=== PATIENT | female | born 1965 | race Two or more races ===

== ENCOUNTER 2024-12-26 20:50 | Inpatient (IN) | payer MEDICAID, OTHER ==
[~2024-12-26] VITALS: Ht 134.6 cm; Wt 96.7 kg
[2024-12-26 21:26] LABS: Hematocrit 42.1 % (36.0-46.0); Hemoglobin 14.1 g/dL (12.2-16.2); Mean Corpuscular Hemoglobin 29.4 pg (28.0-32.0); Mean Corpuscular Volume 87.7 fL (80.0-100.0); Nucleated Red Blood Cells % 0.0 %
[2024-12-26 21:44] LABS: Calcium 9.0 mg/dL (8.7-10.4); Chloride 99 mmol/L (98-107)
[2024-12-26 21:45] LABS: Albumin 4.0 g/dL (3.2-4.8); Anion Gap 13 (5-15); BUN/Creatinine Ratio 19.3 (10.0-20.0); Bilirubin, Total 0.6 mg/dL (0.2-1.0); Blood Urea Nitrogen 17 mg/dL (9-23); Lipase 33 U/L (12-53); Potassium 4.3 mmol/L (3.5-5.1); Total Protein 6.8 g/dL (5.7-8.2)
[2024-12-26 21:46] LABS: Alanine Aminotransferase 45 U/L (7-40); Alkaline Phosphatase 205 U/L (46-116); Carbon Dioxide 18 mmol/L (20-31); Sodium 130 mmol/L (136-145)
[2024-12-26 21:48] LABS: Glucose 438 mg/dL (74-106)
--- NOTE | 2024-12-26 22:12 | ED.PDOC ---
History of Present Illness HPI Comments This patient is a severely morbidly obese 60 y/o F is BIBA for c/c generalized weakness, diffuse abdominal pain and hyperglycemia that began this morning has continued throughout the day. Denies any nausea, vomiting, dehydration, urinary symptoms, fever, chills, or further associated symptoms. Blood glucose on scene in the high 400's range. Patient was mildly febrile at arrival. Patient states she has a history of poorly controlled diabetes and hypertension. Chief Complaint: Hyperglycemia Time Seen by MD: 20:50 Reviewed Notes: Nurses Notes, Centrifugal Screen Tender Notes, Medications, Allergies Allergies: Coded Allergies: No Known Drug Allergy (Verified Allergy, Unknown, 12/26/24) Information Source: Patient, Emergency Med Personnel Mode of Arrival: EMS Severity: Moderate Timing: Days Duration: Since onset Prehospital treatment: 12 Lead EKG, Accucheck, Card Lacer, IVF, Other (Zofran ) Past Medical History PAST MEDICAL HISTORY: DM, HTN, Thyroid Surgical History: Denies all surgeries TENT WORKER History: Denies all TENT WORKER Hx Family History Family History: Unknown Social History Smoker: Non-Smoker Alcohol: Denies ETOH Use Drugs: Denies Drug Use Lives In: Home Constitutional: reports: fatigue, fever, malaise, weakness; denies: chills, diaphoresis, sweats, others EENTM: denies: blurred vision, double vision, ear bleeding, ear discharge, ear drainage, ear pain, ear ringing, eye pain, eye redness, hearing loss, mouth pain, mouth swelling, nasal discharge, nose bleeding, nose congestion, nose pain, photophobia, tearing, throat pain, throat swelling, voice changes, others Respiratory: denies: cough, hemoptysis, orthopnea, SOB at rest, shortness of breath, SOB with excertion, stridor, wheezing, others Cardiovascular: denies: chest pain, dizzy spells, diaphoresis, Dyspnea on exertion, edema, irregular heart beat, left arm pain, lightheadedness, palpitations, PND, syncope, others Gastrointestinal: reports: abdominal pain; denies: abdomen distended, blood streaked bowels, constipated, diarrhea, dysphagia, difficulty swallowing, hematemesis, melena, nausea, poor appetite, poor fluid intake, rectal bleeding, rectal pain, vomiting, others Genitourinary: denies: abnormal vagina bleeding, burning, dyspareunia, dysuria, flank pain, frequency, hematuria, incontinence, pain, , vagina discharge, urgency, others Neurological: denies: dizziness, fainting, headache, left sided numbness, left sided weakness, numbness, paresthesia, pre-existing deficit, right sided numbness, right sided weakness, seizure, speech problems, tingling, tremors, weakness, others Musculoskeletal: denies: back pain, gout, joint pain, joint swelling, muscle pain, muscle stiffness, neck pain, others Integumetry: denies: bruises, change in color, change in hair/nails, dryness, laceration, lesions, lumps, rash, wounds, others Allergic/Immunocompromised: denies: Difficulty Healing, Frequent Infections, Hives, Itching, others Hematologic/Lymphatic: denies: anemia, blood clots, easy bleeding, easy bruising, swollen glands, others Endocrine: denies: excessive hunger, excessive sweating, excessive thirst, excessive urination, flushing, intolerance to cold, intolerance to heat, unexplained weight gain, unexplained weight loss, others Psychiatric: denies: anxiety, bipolar disorder, depression, hopeless, panic disorder, schizophrenia, sleepless, suicidal, others All Other Systems: Reviewed and Negative (Comprehensive systems review obtained and negative except for what is stated in the HPI.) Physical Exam General Appearance: Moderate Distress ([id number] distress due to chief complaint concerns. Patient appears to be in poor overall health.), Normal HEENT: Normal ENT Inspection, Pharynx Normal, TMs Normal Neck: Full Range of Motion, Non-Tender, Normal, Normal Inspection Respiratory: Chest Non-Tender, Lungs Clear, No Accessory Muscle Use, No Respiratory Distress, Normal Breath Sounds Cardiovascular: No Edema, No JVD, No Murmur, No Gallop, Normal Peripheral Pulses, Regular Rate/Rhythm Breast Exam: Deferred Gastrointestinal: Other (Nonspecific diffuse periumbilical tenderness to palpation throughout. Difficult to assess due to body habitus. No signs of trauma.) Genitalia: Deferred Pelvic: Deferred Rectal: Deferred Extremities: No calf tenderness, Normal capillary refill, Normal inspection, Normal range of motion, Non-tender, No pedal edema Neurologic: Alert, No Motor Deficits, Normal Affect, Normal Mood, No Sensory Deficits Cerebellar Function: Normal Reflexes: Normal Skin: Dry, Normal Color, Warm Lymphatic: No Adenopathy Was a procedure done? Was a procedure done?: No Differential Dx Considerations may include: viral syndrome, electrolyte imbalance, dehydration, hyperglycemia, DKA, among others X-Ray, Labs, Meds, VS Vital Signs Date Time Temp Pulse Resp B/P (MAP) Pulse Ox O2 Delivery O2 Flow Rate FiO2 12/26/24 22:00 98.9 91 20 121/77 (92) 96 98.9 12/26/24 21:56 100.4 91 28 148/73 (98) 94 100.4 12/26/24 20:55 91 Lab Test 12/26/24 22:52 12/26/24 22:05 12/26/24 21:15 Range/Units Urine Color Dark yellow Yellow Urine Clarity Turbid H Clear Urine pH 6.0 5.0-9.0 Urine Specific [place] 1.024 1.001-1.035 Urine Protein 2+ H Negative Urine Ketones 2+ H Negative Urine Blood 2+ H Negative /uL Urine Nitrite Negative Negative Urine Bilirubin Negative Negative Urine Urobilinogen Normal Negative mg/dL Urine Leukocyte Esterase 2+ Negative /uL Urine RBC 5 0 - 4 /hpf Urine WBC Clumps Present None Seen /hpf Urine Microscopic WBC 93 H 0-5 /HPF Urine Squamous Epithelial Cells Few <5 /hpf Urine Bacteria Many H None Seen /hpf Urine Glucose 4+ H Normal mg/dL Troponin I High Sensitivity < 3 L < 3 L </=34 ng/L White Blood Count 16.5 H 4.4-10.8 10^3/uL Red Blood Count 4.80 4.0-5.20 10^6/uL Hemoglobin 14.1 12.2-16.2 g/dL Hematocrit 42.1 36.0-46.0 % Mean Corpuscular Volume 87.7 80.0-100.0 fL Mean Corpuscular Hemoglobin 29.4 28.0-32.0 pg Mean Corpuscular Hemoglobin Concent 33.6 32.0-36.0 g/dL Red Cell Distribution Width 13.1 11.8-14.3 % Platelet Count 243 140-450 10^3/uL Mean Platelet Volume 9.8 6.9-10.8 fL Neutrophils (%) (Auto) 79.2 37.0-80.0 % Lymphocytes (%) (Auto) 9.6 L 10.0-50.0 % Monocytes (%) (Auto) 10.7 0.0-12.0 % Eosinophils (%) (Auto) 0.1 0.0-7.0 % Basophils (%) (Auto) 0.4 0.0-2.0 % Neutrophils # (Auto) 13.1 H 1.6-8.6 10 ^3/uL Lymphocytes # (Auto) 1.6 0.4-5.4 10 ^3/uL Monocytes # (Auto) 1.8 H 0-1.3 10 ^3/uL Eosinophils # (Auto) 0 0-0.8 10 ^3/uL Basophils # (Auto) 0.1 0-0.2 10 ^3/uL Nucleated Red Blood Cells 0.0 % Sodium Level 130 L 136-145 mmol/L Potassium Level 4.3 3.5-5.1 mmol/L Chloride Level 99 98-107 mmol/L Carbon Dioxide Level 18 L 20-31 mmol/L Anion Gap 13 5-15 Blood Urea Nitrogen 17 9-23 mg/dL Creatinine 0.88 0.550-1.02 mg/dL Glomerular Filtration Rate Calc 75 >90 mL/min BUN/Creatinine Ratio 19.3 10.0-20.0 Serum Glucose 438 *H 74-106 mg/dL Lactic Acid Level 1.2 0.4-2.0 mmol/L Calcium Level 9.0 8.7-10.4 mg/dL Total Bilirubin 0.6 0.2-1.0 mg/dL Aspartate Amino Transferase (AST) 56 H 13-40 U/L Alanine Aminotransferase (ALT) 45 H 7-40 U/L Alkaline Phosphatase 205 H 46-116 U/L Total Protein 6.8 5.7-8.2 g/dL Albumin 4.0 3.2-4.8 g/dL Lipase 33 12-53 U/L Current Medications Medications (Trade) Dose Ordered Sig/Greg Route Start Time Stop Time Status Last Admin Sodium Chloride 1,000 ml @ 1,000 mls/hr Q1H ONCE IV 12/26/24 21:00 12/26/24 21:59 DC 12/26/24 22:20 Insulin Human Regular (InsuLIN R) 15 units ONCE ONCE IV 12/26/24 21:00 12/26/24 21:01 DC 12/26/24 22:21 Ondansetron HCl (Zofran) 4 mg ONCE ONCE IV 12/26/24 21:00 12/26/24 21:01 DC 12/26/24 22:20 X-Ray, Labs, Meds, VS Comment All studies performed the ED were evaluated by me personally. ABG was pending at time of this note. Serum laboratories revealed a leukocytosis, significant hyperglycemia, hyponatremia and transaminitis with elevated alk-phos. Patient's urine returned a significant urinary tract infection. Patient needs to be admitted for stabilization of her blood sugar concerns as well as antibiotics to address her urinary tract infection that may be responsible for her elevated fever concerns as well. Time of 1ST Reevaluation: 23:18 Reevaluation 1ST: Improved Consultation: PCP Patient Education/Counseling: Diagnosis, Treatment, Need For Follow Up Family Education/Counseling: Diagnosis, Treatment, No Family Present SEPSIS Sepsis Screen Date sepsis recognized/suspect: Dec 26, 2024 Time Sepsis recognized/suspect: 2053 Recent Procedure: No On Antibiotic Therapy: No Respiratory Rate >20: No Heart Rate >90: No Temp<36 C (96.8 F) or >38.3 C: No SBP <90 or MAP <65 mmHG: No New Acute Mental Status Change: No Is the patient on CPAP, BIPAP,: No Physician Orders Troponin-I Hs (12/26/24 23:58) Electrocardigram (12/26/24 20:58) Heplock Iv (12/26/24 ) Ceftriaxone 1gm/50ml D5w (Rocephin) (12/26/24 23:15) Vital Signs Date Time Temp Pulse Resp B/P (MAP) Pulse Ox O2 Delivery O2 Flow Rate FiO2 12/26/24 22:00 98.9 91 20 121/77 (92) 96 98.9 12/26/24 21:56 100.4 91 28 148/73 (98) 94 100.4 12/26/24 20:55 91 Laboratory Tests Test 12/26/24 21:15 Lactic Acid Level 1.2 mmol/L (0.4-2.0) White Blood Count 16.5 10^3/uL (4.4-10.8) H Medications Medications Dose Ordered Sig/Greg Route Start Time Stop Time Status Last Admin Dose Admin Insulin Human Regular 15 units ONCE ONCE IV 12/26/24 21:00 12/26/24 21:01 DC 12/26/24 22:21 Ondansetron HCl 4 mg ONCE ONCE IV 12/26/24 21:00 12/26/24 21:01 DC 12/26/24 22:20 Sodium Chloride 1,000 ml @ 1,000 mls/hr Q1H ONCE IV 12/26/24 21:00 12/26/24 21:59 DC 12/26/24 22:20 Departure 1 Departure Time of Disposition: 23:18 Impression: Primary Impression: Hyperglycemia due to diabetes mellitus Additional Impressions: Leukocytosis Hyponatremia Transaminitis Urinary tract infection Disposition: ADMITTED INPATIENT Condition: Fair Discharged With: Self Critical Care Note Critical Care Time?: No Stability Stability form required: No Heart Score Heart Score: Heart Score Response (Comments) Value History N/A 0 EKG N/A 0 Age N/A 0 Risk Factors N/A 0 Troponin N/A 0 Total 0 I personally scribed for NIMCO HESS MD ([email or web address]) on 12/26/24 at 22:12. Electronically submitted by Davis Sow [email or web address]). NIMCO HESS MD Dec 26, 2024 22:12 BLANCA GUAMAN Dec 26, 2024 23:19
[2024-12-26] MEDS: ONDANSETRON HCL 4 MG/2 ML VIAL IV ONE (22:20)
[2024-12-26] MEDS: SODIUM CHLORIDE 0.9% 1,000 ML IV ONE (22:20)
[2024-12-26] MEDS: InsuLIN REG 1unit/0.01ml Soln (100units/ml) IV ONE (22:21)
[2024-12-26 23:05] LABS: Urine Protein, UAD 2+ (Negative); Urine WBC Clumps PRESENT /hpf (None Seen)
[2024-12-26 23:31] LABS: Base Excess -5.9 mmol/L (-2.0-3.0)
[2024-12-27] VITALS (8 sets, daily range): BP systolic 111–132; BP diastolic 57–78; PULSE 67–90; RESP 16–20; TEMP 97.9–99.2; O2SAT 92–97
[2024-12-27] MEDS: ACETAMINOPHEN 325 MG TAB PO ONE (00:01)
[2024-12-27] MEDS: cefTRIAXone 1GM/50ML D5W 50 ML IV ONE ×2 (00:02→03:26)
[2024-12-27] MEDS ORDERED: DEXTROSE (50%) 50ML SYRG IV PRN (02:45)
[2024-12-27] MEDS ORDERED: ONDANSETRON HCL 4 MG/2 ML VIAL IV PRN (02:45)
--- NOTE | 2024-12-27 03:44 | DVHHPRES ---
History of Present Illness Resident Creating Document: MARI PENNY RESIDENT History of Present Illness This is a 60-year-old morbidly obese female with past medical history of type 2 diabetes mellitus (T2DM) on metformin only, hypertension, and hypothyroidism, presenting from home with generalized weakness, diffuse abdominal pain (left > right), and hyperglycemia. Symptoms began approximately 4 days ago and include burning with urination, chills, nausea, no appetite, and shortness of breath without cough. She denies vomiting or chest pain. She had a bowel movement yesterday and reports bilateral leg swelling. She reports no insulin therapy at home, and her glucose has been elevated throughout the day. On arrival, she was mildly febrile (T 100.4F), tachypneic (RR 28), and hypertensive (BP 148/73 mmHg). Urinalysis is positive for turbidity, leukocyte esterase (2+), ketones (2+), glucose (4+), RBCs, WBCs (93/hpf), and bacteria. CBC revealed WBC 16.5K with neutrophilic predominance (13.1K). CMP showed hyponatremia (Na 130),Corrected Sodium 135.4 mmol/L, low CO (18), glucose 438 mg/dL, and albumin 2.4 g/dL. ABG revealed pH 7.393, pCO 29.4, HCO 17.5, Sandra? 68.1, and Osat 93.4%, consistent with metabolic acidosis with appropriate respiratory compensation and mild hypoxemia. Lactic acid was normal (1.2). This clinical picture is concerning for Hyperglycemic State , complicated urinary tract infection, and volume depletion with mild hypoxia and electrolyte disturbances. Due to the risk of decompensation, she is being admitted to the telemetry unit for continuous monitoring, IV fluids, insulin therapy, antibiotic treatment for UTI, and further workup of her metabolic status. Past Medical History Type 2 Diabetes Mellitus Hypertension Hypothyroidism Past Surgical History section Hysterectomy Family History Father with type 2 diabetes mellitus Smoke: No Drugs: None Lives: with Family Domestic Violence: Neg Past Social History Denies alcohol, tobacco, or drug use Review of Systems Review of Systems General: Positive for fatigue, malaise, chills. HEENT: No visual changes or headache. CV: Denies chest pain or palpitations. Resp: Mild SOB, no cough or wheezing. GI: Diffuse abdominal pain, nausea, no vomiting, last BM yesterday. : Burning with urination, suprapubic pain. Neuro: No focal deficits. Skin: Bilateral leg swelling, no rashes. Psych: Alert, cooperative, anxious due to symptoms. Allergies: Coded Allergies: No Known Drug Allergy (Verified Allergy, Unknown, 12/26/24) Medications Current Medications Medications Dose Ordered Sig/Greg Route Start Time Stop Time Status Last Admin Dose Admin Acetaminophen 650 mg Q6HP PRN PO 12/27/24 02:45 Enoxaparin Sodium 40 mg DAILY SC 12/27/24 10:00 Insulin Glargine 20 units HS SC 12/27/24 22:00 Diagnostic Test (Pha) 1 strip Q6HR 12/27/24 06:00 Insulin Human Regular Q6HR SC 12/27/24 06:00 Dextrose 50 ml UD PRN IV 12/27/24 02:45 Ondansetron HCl 4 mg ONCE PRN IV 12/27/24 02:45 Exam Vital Signs Vital Signs Date Time Temp Pulse Resp B/P (MAP) Pulse Ox O2 Delivery O2 Flow Rate FiO2 12/26/24 22:00 98.9 91 20 121/77 (92) 96 98.9 Exam General: Moderate distress, alert, oriented HEENT: Normocephalic, no lymphadenopathy Cardiac: RRR, no murmurs/gallops Lungs: Clear to auscultation Abdomen: Soft, diffusely tender (left > right), no rebound/guarding Extremities: Bilateral 1+ edema Neuro: Grossly intact, no focal deficits Skin: Warm, dry Labs/Xrays Labs Test 12/26/24 23:25 12/26/24 22:52 12/26/24 22:05 12/26/24 21:15 Range/Units Blood Gas Specimen Type Arterial Blood Gas Sample Site Peripheral line Blood Gas Patient Temperature 37.0 Arterial Blood Date Drawn [id number] Arterial Blood pH 7.393 7.350-7.450 Arterial Blood Partial Pressure CO2 29.4 L 32.0-45.0 mmHg Arterial Blood Partial Pressure O2 68.1 L 83.0-108.0 mmHg Arterial Blood HCO3 17.5 L 21.0-28.0 mmol/L Arterial Blood Oxygen Saturation 93.4 L 94.0-98.0 % Arterial Blood Base Excess -5.9 L -2.0-3.0 mmol/L Arterial Blood Oxyhemoglobin 91.5 L 94.0-98.0 % Arterial Blood Carboxyhemoglobin 1.5 0.5-1.5 % Arterial Blood Methemoglobin 0.5 0.0-1.5 % Fuad Test Yes Blood Gas Total Hemoglobin 14.80 12.0-16.0 g/dL Blood Gas Liter Flow 0.00 Blood Gas Modality Room air FiO2 % 21.0 Urine Color Dark yellow Yellow Urine Clarity Turbid H Clear Urine pH 6.0 5.0-9.0 Urine Specific [place] 1.024 1.001-1.035 Urine Protein 2+ H Negative Urine Ketones 2+ H Negative Urine Blood 2+ H Negative /uL Urine Nitrite Negative Negative Urine Bilirubin Negative Negative Urine Urobilinogen Normal Negative mg/dL Urine Leukocyte Esterase 2+ Negative /uL Urine RBC 5 0 - 4 /hpf Urine WBC Clumps Present None Seen /hpf Urine Microscopic WBC 93 H 0-5 /HPF Urine Squamous Epithelial Cells Few <5 /hpf Urine Bacteria Many H None Seen /hpf Urine Glucose 4+ H Normal mg/dL Troponin I High Sensitivity < 3 L </=34 ng/L White Blood Count 16.5 H 4.4-10.8 10^3/uL Red Blood Count 4.80 4.0-5.20 10^6/uL Hemoglobin 14.1 12.2-16.2 g/dL Hematocrit 42.1 36.0-46.0 % Mean Corpuscular Volume 87.7 80.0-100.0 fL Mean Corpuscular Hemoglobin 29.4 28.0-32.0 pg Mean Corpuscular Hemoglobin Concent 33.6 32.0-36.0 g/dL Red Cell Distribution Width 13.1 11.8-14.3 % Platelet Count 243 140-450 10^3/uL Mean Platelet Volume 9.8 6.9-10.8 fL Neutrophils (%) (Auto) 79.2 37.0-80.0 % Lymphocytes (%) (Auto) 9.6 L 10.0-50.0 % Monocytes (%) (Auto) 10.7 0.0-12.0 % Eosinophils (%) (Auto) 0.1 0.0-7.0 % Basophils (%) (Auto) 0.4 0.0-2.0 % Neutrophils # (Auto) 13.1 H 1.6-8.6 10 ^3/uL Lymphocytes # (Auto) 1.6 0.4-5.4 10 ^3/uL Monocytes # (Auto) 1.8 H 0-1.3 10 ^3/uL Eosinophils # (Auto) 0 0-0.8 10 ^3/uL Basophils # (Auto) 0.1 0-0.2 10 ^3/uL Nucleated Red Blood Cells 0.0 % Sodium Level 130 L 136-145 mmol/L Potassium Level 4.3 3.5-5.1 mmol/L Chloride Level 99 98-107 mmol/L Carbon Dioxide Level 18 L 20-31 mmol/L Anion Gap 13 5-15 Blood Urea Nitrogen 17 9-23 mg/dL Creatinine 0.88 0.550-1.02 mg/dL Glomerular Filtration Rate Calc 75 >90 mL/min BUN/Creatinine Ratio 19.3 10.0-20.0 Serum Glucose 438 *H 74-106 mg/dL Lactic Acid Level 1.2 0.4-2.0 mmol/L Calcium Level 9.0 8.7-10.4 mg/dL Total Bilirubin 0.6 0.2-1.0 mg/dL Aspartate Amino Transferase (AST) 56 H 13-40 U/L Alanine Aminotransferase (ALT) 45 H 7-40 U/L Alkaline Phosphatase 205 H 46-116 U/L Total Protein 6.8 5.7-8.2 g/dL Albumin 4.0 3.2-4.8 g/dL Lipase 33 12-53 U/L SEPSIS Sepsis Screen Date sepsis recognized/suspect: Dec 26, 2024 Time Sepsis recognized/suspect: 2053 Recent Procedure: No On Antibiotic Therapy: No Respiratory Rate >20: No Heart Rate >90: No Temp<36 C (96.8 F) or >38.3 C: No SBP <90 or MAP <65 mmHG: No New Acute Mental Status Change: No Is the patient on CPAP, BIPAP,: No Physician Orders Electrocardigram (12/26/24 20:58) Heplock Iv (12/26/24 ) Abg W/ Co-Ox (12/26/24 23:16) Admit (12/27/24 02:37) Code Status (12/27/24 02:37) Vital Signs .PER UNIT PROTOCOL (12/27/24 02:37) Review Orders With Adm. (12/27/24 02:37) Encourage Activity As Tolerate (12/27/24 02:37) Acetaminophen Tablet (Tylenol Tablet) (12/27/24 02:45) Notify Md Of Changes From Base (12/27/24 02:37) Advance Directive (12/27/24 02:37) Chest Two Views Routine (12/28/24 04:00) Complete Blood Count (12/27/24 02:37) Urine Bacterial Culture (12/27/24 02:37) Patient Condition (12/27/24 02:37) Allergies (12/27/24 02:37) Drug Screen (12/27/24 02:37) Hemoglobin A1c (12/27/24 02:37) Enoxaparin Sodium (Lovenox) (12/27/24 10:00) Stat Ekg For Chest Pain (12/27/24 02:37) Assistant City Attorney For 24 Hours (12/27/24 02:37) Electrocardigram (12/27/24 02:37) Npo (Nothing By Mouth) Diet (12/27/24 Breakfast) Insulin Lantus (Glargine) (Lantus) (12/27/24 22:00) Glucose Blood (Accu-Chek Comfort Curve T (12/27/24 06:00) Insulin R (Human) (Insulin R) (12/27/24 06:00) Dextrose 50% Syringe (12/27/24 02:45) Comprehensive Metabolic Panel (12/27/24 02:37) Magnesium (12/27/24 02:37) Phosphorus (12/27/24 02:37) Calcium (12/27/24 02:37) Blood Culture (12/27/24 02:37) Osmolality, Serum (12/27/24 02:37) PTPTT (12/27/24 02:37) Prothrombin Time W/ Inr (12/27/24 02:37) Document Fluid Input And Outpu (12/27/24 02:37) Ceftriaxone 1gm/50ml D5w (Rocephin) (12/27/24 03:15) Abdomen Complete Sonogram (12/27/24 02:37) B-Type Natriuretic Peptide (12/27/24 02:37) Rapid Influenza A&B (12/27/24 02:37) Covid19 Antigen Valerie (12/27/24 ) Thyroid Stimulating Hormone (12/27/24 02:37) Free T4 (Free Thyroxine) (12/27/24 02:37) Bilat Lower Dvt (12/27/24 02:37) Ondansetron Hcl (Zofran) (12/27/24 02:45) D-Dimer (12/27/24 02:37) Kub Abdomen Single View (12/27/24 02:37) Vital Signs Date Time Temp Pulse Resp B/P (MAP) Pulse Ox O2 Delivery O2 Flow Rate FiO2 12/26/24 22:00 98.9 91 20 121/77 (92) 96 98.9 12/26/24 21:56 100.4 91 28 148/73 (98) 94 100.4 12/26/24 20:55 91 Laboratory Tests Test 12/26/24 21:15 Lactic Acid Level 1.2 mmol/L (0.4-2.0) White Blood Count 16.5 10^3/uL (4.4-10.8) H Medications Medications Dose Ordered Sig/Greg Route Start Time Stop Time Status Last Admin Dose Admin Acetaminophen 650 mg ONCE ONCE PO 12/27/24 00:00 12/27/24 00:01 DC 12/27/24 00:01 650 MG Ceftriaxone Sodium 50 ml @ 100 mls/hr ONCE ONCE IV 12/26/24 23:15 12/26/24 23:44 DC 12/27/24 00:02 100 MLS/HR Insulin Human Regular 15 units ONCE ONCE IV 12/26/24 21:00 12/26/24 21:01 DC 12/26/24 22:21 15 UNITS Ondansetron HCl 4 mg ONCE ONCE IV 12/26/24 21:00 12/26/24 21:01 DC 12/26/24 22:20 4 MG Sodium Chloride 1,000 ml @ 1,000 mls/hr Q1H ONCE IV 12/26/24 21:00 12/26/24 21:59 DC 12/26/24 22:20 1,000 MLS/HR Assessment/Plan Assessment/Plan Hyperglycemic State (HHS) * Due to poorly controlled diabetes, absence of insulin, glucose 438 mg/dL, ketonuria, dehydration, and altered mental status risk. Diffuse Abdominal Pain with Elevated LFTs Elevated Liver-Associated Enzymes Transaminitis and Cholestasis Pattern * AST 56 (?), ALT 45 (?), ALP 205 (?), suggestive of mixed hepatocellular- cholestatic injury. * Etiologies being evaluated: fatty liver (NAFLD), cholelithiasis, darling cystitis, biliary obstruction, medication-related hepatotoxicity, or infection. * Lipase normal, ruling out pancreatitis. Complicated Urinary Tract Infection CC * Based on dysuria, suprapubic pain, positive UA (bacteria, WBCs, leuk esterase), fever, and systemic response. Mild Anion Gap Metabolic Acidosis with Respiratory Compensation * HCO?? 17.5, AG 13, PCO? 29.4, consistent ABG compensation. Electrolyte Imbalance Hyponatremia (corrected Na 135.4), * Dilutional due to hyperglycemia; needs correction with glucose management. Bilateral Lower Extremity Edema Uncontrolled Type 2 Diabetes Mellitus , A1c pending, poor glycemic control, presenting with crisis. Mild Hypoxemia * Sandra 68.1, OSat 93.4%, monitor for deterioration TREATMENT PLAN (Problem-espinoza) Hyperglycemia * Admit to Telemetry Unit * IV fluids: NS 150 mL/hr initially, then adjust per osmolality/Na * Insulin drip per protocol, monitor BG hourly * Lantus 20 units daily * Frequent labs: BMP q4h, AG monitoring, VBG Hepatic Enzyme Elevation / Suspected Hepatobiliary Disorder * Order RUQ abdominal ultrasound STAT to assess for: * Cholelithiasis * Biliary sludge or stones * Wall thickening (cholecystitis) * Intra/extrahepatic biliary dilation * Hepatic steatosis * Trend LFTs (AST, ALT, ALP, bilirubin, albumin) every 48 hours * Add total bilirubin + direct bilirubin, PT/INR to assess synthetic function * Hold any new medications with hepatotoxic potential * NPO if surgical or GI consult becomes necessary Complicated UTI (CC) * Ceftriaxone 1g IV daily or Zosyn 3.375g IV q8h pending cultures * Encourage PO hydration as tolerated * Repeat UA, urine culture Metabolic Acidosis * Manage underlying cause (ketosis/dehydration) * Monitor ABG/VBG every 12h * Repeat lactate if deterioration Electrolyte Imbalance * Monitor sodium, potassium, phosphorus, magnesium * Replete K?, Mg?, PO?? per hospital protocol Edema * Daily weights, I/O * Leg elevation, compression stockings if tolerated * Monitor albumin trends DM2 Uncontrolled * Check HbA1c * Transition to long-term basal/bolus insulin * tobacco prevention health educator referral Mild Hypoxemia * Monitor SpO? continuously * O? via nasal cannula if SpO? < 92% * Repeat ABG if symptoms worsen ?? PROPHYLAXIS MEASURES * DVT Prophylaxis: LOVENOX 40 SC DAILY * GI Prophylaxis: Pantoprazole 40 mg IV daily * Skin Breakdown Prevention: Barrier cream, frequent turns * Fall Precautions: Due to weakness/hyperglycemia * Code Status: Full Code Disposition: Admit to Telemetry Unit for IV insulin, metabolic monitoring, and management of infection and electrolyte abnormalities. FINAL STATEMENT: Case discussed in detail with the attending physician, including the clinical presentation, diagnostic workup, and comprehensive management plan. The patient was present for the discussion and demonstrated understanding of her condition and the proposed plan. Patient verbally consented to hospital admission and agreed to the outlined evaluation and treatment strategies, including imaging, labs, medication initiation, specialist consultations, and supportive care. Plan discussed with: Patient My Orders Orders - MARI PENNY RESIDENT Procedure Category Date Status Time Admit ADMIT 12/27/24 Transmitted 02:37 Code Status CODE 12/27/24 Transmitted 02:37 Vital Signs [facility] 12/27/24 In Process 02:37 Review Orders With [facility] 12/27/24 In Process Adm. 02:37 Encourage Activity As [facility] 12/27/24 In Process Tolerate 02:37 Acetaminophen Tablet [facility] 12/27/24 In Process (Tylenol Tablet) 02:45 Notify Md Of Changes [facility] 12/27/24 In Process From Base 02:37 Advance Directive [facility] 12/27/24 In Process 02:37 Chest Two Views XY 12/28/24 Logged Routine 04:00 Complete Blood Count LAB 12/27/24 Logged 02:37 Urine Bacterial L[facility]ON 12/27/24 Logged Culture 02:37 Patient Condition ORDERS 12/27/24 Transmitted 02:37 Allergies [facility] 12/27/24 In Process 02:37 Drug Screen LAB 12/27/24 Logged 02:37 Hemoglobin A1c LAB 12/27/24 Logged 02:37 Enoxaparin Sodium PHA 12/27/24 In Process (Lovenox) 10:00 Stat Ekg For Chest [facility] 12/27/24 In Process Pain 02:37 Assistant City Attorney For [facility] 12/27/24 In Process 24 Hours 02:37 Electrocardigram EKG 12/27/24 Logged 02:37 Npo (Nothing By DIET 12/27/24 Transmitted Mouth) Diet Breakfast Insulin Lantus PHA 12/27/24 In Process (Glargine) (Lantus) 22:00 Glucose Blood PHA 12/27/24 In Process (Accu-Chek Comfort 06:00 Insulin R (Human) PHA 12/27/24 In Process (Insulin R) 06:00 Dextrose 50% Syringe PHA 12/27/24 In Process 02:45 Comprehensive LAB 12/27/24 Logged Metabolic Panel 02:37 Magnesium LAB 12/27/24 Logged 02:37 Phosphorus LAB 12/27/24 Logged 02:37 Calcium LAB 12/27/24 Logged 02:37 Blood Culture L[facility]ON 12/27/24 Logged 02:37 Osmolality, Serum LAB 12/27/24 Logged 02:37 PTPTT LAB 12/27/24 Logged 02:37 Prothrombin Time W/ LAB 12/27/24 Logged INR 02:37 Document Fluid Input FERNANDO 12/27/24 In Process And Outpu 02:37 Ceftriaxone 1gm/50ml PHA 12/27/24 In Process D5w (Rocephin) 03:15 Abdomen Complete US 12/27/24 Logged Sonogram 02:37 B-Type Natriuretic LAB 12/27/24 Logged Peptide 02:37 Rapid Influenza A&B LAB 12/27/24 Logged 02:37 Covid19 Antigen Valerie LAB 12/27/24 Logged Thyroid Stimulating LAB 12/27/24 Logged Hormone 02:37 Free T4 (Free LAB 12/27/24 Logged Thyroxine) 02:37 Bilat Lower Dvt US 12/27/24 Logged 02:37 Ondansetron Hcl PHA 12/27/24 In Process (Zofran) 02:45 D-Dimer LAB 12/27/24 Logged 02:37 Kub Abdomen Single XY 12/27/24 Taken View 02:37 Date of Service: Dec 27, 2024 Billing Provider: ANYI DOWELL MD Common Visit Codes: 28483-USVSCIR INP/OBS CARE (HIGH) Secondary Visit Codes: 12017-VLJBOASP CARE PLAN 30 MINUTES MARI PENNY RESIDENT Dec 27, 2024 03:44
--- NOTE | 2024-12-27 03:45 | DVH ---
Exam: XY KUB ABDOMEN SINGLE VIEW Indication: Evaluate for intra-abdominal pathologies Comparison: None Technique: Single radiographic view of the abdomen. Findings: Nonobstructive bowel gas pattern noted. There is no definite evidence for pneumoperitoneum. No abnormal calcifications noted. Intrauterine device. Impression: 1. Nonobstructive bowel gas pattern noted.
[2024-12-27 03:53] LABS: Hematocrit 42.1 % (36.0-46.0); Hemoglobin 14.0 g/dL (12.2-16.2); Mean Corpuscular Hemoglobin 29.4 pg (28.0-32.0); Mean Corpuscular Volume 88.6 fL (80.0-100.0); Nucleated Red Blood Cells % 0.0 %
[2024-12-27] MEDS: PANTOPRAZOLE 40 MG/10 ML VIAL INJ IV ONE (03:57)
[2024-12-27 04:13] LABS: Albumin 4.0 g/dL (3.2-4.8); Anion Gap 12 (5-15); BUN/Creatinine Ratio 20.7 (10.0-20.0); Blood Urea Nitrogen 19 mg/dL (9-23); Calcium 9.5 mg/dL (8.7-10.4); Carbon Dioxide 20 mmol/L (20-31); Chloride 99 mmol/L (98-107); Magnesium 2.0 mg/dL (1.6-2.6); Potassium 4.1 mmol/L (3.5-5.1); Total Protein 7.1 g/dL (5.7-8.2)
[2024-12-27 04:14] LABS: Alkaline Phosphatase 207 U/L (46-116); Bilirubin, Total 0.4 mg/dL (0.2-1.0); Glucose 378 mg/dL (74-106); Sodium 131 mmol/L (136-145)
[2024-12-27 04:15] LABS: Alanine Aminotransferase 45 U/L (7-40); INR 1.04 (0.9-1.15); Partial Thromboplastin Time 28.2 SEC (24.5-34.5); Prothrombin Time 11.0 sec (9.3-11.8)
--- NOTE | 2024-12-27 04:58 | DVH ---
EXAM: US ABDOMEN COMPLETE SONOGRAM HISTORY: EVALUATE FOR INTRA-ABDOMINAL PATHOLOGY COMPARISON: None TECHNIQUE: Complete abdominal ultrasound was performed. FINDINGS: There are shadowing gallstones with gallbladder wall thickening measuring up to 10 mm. The patient wa s not tender to transducer pressure over the gallbladder. No intrahepatic biliary ductal dilatation o r liver mass. The liver measures 21 cm longitudinal. The liver is somewhat echogenic diffusely, with lower echogenicity adjacent to the gallbladder fossa. There is hepatopetal portal venous color Dopple r flow. The common duct measures 5.3 mm in diameter. The partially visualized pancreas is unremarkabl e. The intrahepatic portion of the IVC is patent. No upper abdominal aortic ectasia. The right kidney measures 12.1 cm in length and is normal in appearance. The left kidney measures 12.7 cm in length a nd is normal in appearance. The spleen is normal in size. IMPRESSION: 1. Cholelithiasis with gallbladder wall thickening suggestive of acute cholecystitis. 2. Probable hepatic steatosis with focal fatty sparing adjacent to the gallbladder fossa.
--- NOTE | 2024-12-27 04:59 | DVH ---
EXAM: US BILAT LOWER DVT HISTORY: B/L lower extremity edema with sob COMPARISON: None TECHNIQUE: Duplex Doppler evaluation of the deep venous system of the bilateral lower extremities fro m the common femoral veins to the posterior tibial veins including color Doppler and spectral/pulsed waveform analysis was performed. FINDINGS: The bilateral common femoral veins, superficial femoral veins, popliteal veins, and posteri or tibial veins are patent with normal compressibility, augmentation, and cephalad color Doppler bloo d flow. No intraluminal filling defects are identified. IMPRESSION: No evidence of DVT in either lower extremity.
[2024-12-27 05:12] LABS: COVID19 ANTIGEN SOFIA FIA NEGATIVE (NEGATIVE)
[2024-12-27] MEDS: ACCU-CHEK COMFORT CURVE STRIP VI SCH (05:51)
[2024-12-27] MEDS: InsuLIN REG 1unit/0.01ml Soln (100units/ml) SC SCH (05:54)
[2024-12-27] MEDS ORDERED: HYDROcodone-ACET 5/325MG TAB PO PRN (06:15)
[2024-12-27] MEDS ORDERED: METF-371 PO (06:59)
--- NOTE | 2024-12-27 09:12 | DVHINCON2 ---
Date of service: Dec 27, 2024 History of Present Illness 59-year-old diabetic female complaining of four day history of diffuse abdominal pain without fevers, chills, nausea or vomiting. Past Medical History Obesity. Diabetes. Past Surgical History . Hysterectomy. Family History: Patient reports no known family medical history. Family History Noncontributory Social History Denies alcohol, tobacco, IV drug use Allergies: Coded Allergies: No Known Drug Allergy (Verified Allergy, Unknown, 12/26/24) Home Meds Reported Medications Metformin Hydrochloride (Metformin Hcl) 850 Mg Tab, 1 TAB PO DAILY, #60 TAB 5 Refills 12/27/24 Current Medications Current Medications Medications (Trade) Dose Ordered Sig/Greg Route PRN Reason Start Time Stop Time Status Last Admin Acetaminophen (Tylenol Tablet) 650 mg Q6HP PRN PO PAIN SCALE 1-3 OR TEMP>100.4 12/27/24 02:45 Enoxaparin Sodium (Lovenox) 40 mg DAILY SC 12/27/24 10:00 Insulin Glargine (Lantus) 20 units HS SC 12/27/24 22:00 Diagnostic Test (Pha) (Accu-Chek Comfort Curve T) 1 strip Q6HR 12/27/24 06:00 12/27/24 05:51 Insulin Human Regular (InsuLIN R) Q6HR SC 12/27/24 06:00 12/27/24 05:54 Dextrose 50 ml UD PRN IV Blood Sugar LESS THAN 60 12/27/24 02:45 Ondansetron HCl (Zofran) 4 mg ONCE PRN IV nausea, vomiting 12/27/24 02:45 Ceftriaxone Sodium 50 ml @ 100 mls/hr DAILY@09 IV 12/28/24 09:00 12/27/24 06:54 DC Acetaminophen/ Hydrocodone Bitart ([place] 5/325MG Tab) 1 tab Q6HPRN PRN PO MODERATE PAIN (4-6 PAIN SCALE) 12/27/24 06:15 Pantoprazole Sodium (Protonix) 40 mg DAILY IV 12/28/24 10:00 Piperacillin Sod/ Tazobactam Sod 100 ml @ 25 mls/hr Q8HR IV 12/27/24 07:00 Vital Signs Vital Signs Date Time Temp Pulse Resp B/P (MAP) Pulse Ox O2 Delivery O2 Flow Rate FiO2 12/27/24 07:05 99.2 73 16 123/67 (90) 93 99.2 Physical Exam GEN: Age-appropriate female in no acute distress. Alert. HEENT: Normocephalic atraumatic. Moist mucous membranes. Anicteric sclerae. CV: RRR Respiratory: CTAB ABD: Slightly obese abdomen with minimal diffuse tenderness to palpation with very minimal guarding. Nondistended. Abdominal ultrasound: Cholelithiasis with gallbladder wall measuring up to 10 m m suspicious for acute cholecystitis. Labs/Diagnostic Data Labs Test 12/27/24 05:44 12/27/24 04:25 12/27/24 03:11 12/26/24 23:25 Range/Units POC Glucose 349 H 70-106 mg/dl Influenza Type A Antigen Negative Negative Influenza Type B Antigen Negative Negative SARS-CoV-2 Antigen (Rapid) Negative NEGATIVE White Blood Count 16.6 H 4.4-10.8 10^3/uL Red Blood Count 4.75 4.0-5.20 10^6/uL Hemoglobin 14.0 12.2-16.2 g/dL Hematocrit 42.1 36.0-46.0 % Mean Corpuscular Volume 88.6 80.0-100.0 fL Mean Corpuscular Hemoglobin 29.4 28.0-32.0 pg Mean Corpuscular Hemoglobin Concent 33.2 32.0-36.0 g/dL Red Cell Distribution Width 13.4 11.8-14.3 % Platelet Count 256 140-450 10^3/uL Mean Platelet Volume 10.1 6.9-10.8 fL Neutrophils (%) (Auto) 72.9 37.0-80.0 % Lymphocytes (%) (Auto) 14.3 10.0-50.0 % Monocytes (%) (Auto) 12.1 H 0.0-12.0 % Eosinophils (%) (Auto) 0.3 0.0-7.0 % Basophils (%) (Auto) 0.4 0.0-2.0 % Neutrophils # (Auto) 12.1 H 1.6-8.6 10 ^3/uL Lymphocytes # (Auto) 2.4 0.4-5.4 10 ^3/uL Monocytes # (Auto) 2.0 H 0-1.3 10 ^3/uL Eosinophils # (Auto) 0 0-0.8 10 ^3/uL Basophils # (Auto) 0.1 0-0.2 10 ^3/uL Nucleated Red Blood Cells 0.0 % Prothrombin Time 11.0 9.3-11.8 sec Prothrombin Time INR 1.04 0.9-1.15 Activated Partial Thromboplast Time 28.2 24.5-34.5 SEC D-Dimer, Quantitative 2.29 H 0.0-0.49 mg/L FEU Sodium Level 131 L 136-145 mmol/L Potassium Level 4.1 3.5-5.1 mmol/L Chloride Level 99 98-107 mmol/L Carbon Dioxide Level 20 20-31 mmol/L Anion Gap 12 5-15 Blood Urea Nitrogen 19 9-23 mg/dL Creatinine 0.92 0.550-1.02 mg/dL Glomerular Filtration Rate Calc 72 >90 mL/min BUN/Creatinine Ratio 20.7 H 10.0-20.0 Serum Glucose 378 H 74-106 mg/dL Hemoglobin A1c 12.3 H <5.7 % A1C Serum Osmolality 297 278-298 mOsm/kg Calcium Level 9.5 8.7-10.4 mg/dL Phosphorus Level 3.6 2.4-5.1 mg/dL Magnesium Level 2.0 1.6-2.6 mg/dL Total Bilirubin 0.4 0.2-1.0 mg/dL Aspartate Amino Transferase (AST) 42 H 13-40 U/L Alanine Aminotransferase (ALT) 45 H 7-40 U/L Alkaline Phosphatase 207 H 46-116 U/L B-Type Natriuretic Peptide 26.70 0-100 pg/mL Total Protein 7.1 5.7-8.2 g/dL Albumin 4.0 3.2-4.8 g/dL Thyroid Stimulating Hormone (TSH) 2.46 0.55-4.78 uIU/mL Blood Gas Specimen Type Arterial Blood Gas Sample Site Peripheral line Blood Gas Patient Temperature 37.0 Arterial Blood Date Drawn [id number] Arterial Blood pH 7.393 7.350-7.450 Arterial Blood Partial Pressure CO2 29.4 L 32.0-45.0 mmHg Arterial Blood Partial Pressure O2 68.1 L 83.0-108.0 mmHg Arterial Blood HCO3 17.5 L 21.0-28.0 mmol/L Arterial Blood Oxygen Saturation 93.4 L 94.0-98.0 % Arterial Blood Base Excess -5.9 L -2.0-3.0 mmol/L Arterial Blood Oxyhemoglobin 91.5 L 94.0-98.0 % Arterial Blood Carboxyhemoglobin 1.5 0.5-1.5 % Arterial Blood Methemoglobin 0.5 0.0-1.5 % Fuad Test Yes Blood Gas Total Hemoglobin 14.80 12.0-16.0 g/dL Blood Gas Liter Flow 0.00 Blood Gas Modality Room air FiO2 % 21.0 Test 12/26/24 22:52 12/26/24 22:05 12/26/24 21:15 Range/Units Urine Color Dark yellow Yellow Urine Clarity Turbid H Clear Urine pH 6.0 5.0-9.0 Urine Specific Coleman 1.024 1.001-1.035 Urine Protein 2+ H Negative Urine Ketones 2+ H Negative Urine Blood 2+ H Negative /uL Urine Nitrite Negative Negative Urine Bilirubin Negative Negative Urine Urobilinogen Normal Negative mg/dL Urine Leukocyte Esterase 2+ Negative /uL Urine RBC 5 0 - 4 /hpf Urine WBC Clumps Present None Seen /hpf Urine Microscopic WBC 93 H 0-5 /HPF Urine Squamous Epithelial Cells Few <5 /hpf Urine Bacteria Many H None Seen /hpf Urine Glucose 4+ H Normal mg/dL Troponin I High Sensitivity < 3 L </=34 ng/L Lactic Acid Level 1.2 0.4-2.0 mmol/L Lipase 33 12-53 U/L Assessment 1. Possible cholecystitis Plan/Recommendation 1. We will get a HIDA scan and a CT of the abdomen and pelvis. If the HIDA is positive then we will proceed with a laparoscopic cholecystectomy. Plan discussed with: Patient SHANIKA TELLEZ MD Dec 27, 2024 09:12
[2024-12-27] MEDS ORDERED: IOHEXOL 300 MG/ML 100ML BOTTLE IJ ONE (09:41)
[2024-12-27] MEDS: ENOXAPARIN SOD 40 MG/0.4 ML SYRINGE SC SCH (10:00)
--- NOTE | 2024-12-27 10:19 | DVH ---
CT CT AB PEL WITH IV CON ONLY INDICATION: abd pain EXAM DATE: 12/27/2024 09:46 AM COMPARISON: None RADIATION DOSE: CTDIvol: 22.27 mGy, DLP: 1292.31 mGy*cm PROCEDURE: Helical CT images were obtained of the abdomen and pelvis with IV contrast Sagittal and co baldev reconstructions are provided. ORAL CONTRAST: None. ADDITIONAL IMAGES / REFORMATS: None All CT s cans at this medical facility are performed using dose modulation techniques as appropriate to a perf ormed exam including the following: Automated exposure control was utilized; adjustment of the MA and /or KV according to patient size; and use of iterative reconstruction technique. FINDINGS: LUNG BASE: Bibasilar atelactasis is seen. LIVER: Normal. GALLBLADDER AND BILIARY TREE: No calcified gallstones. Normal caliber wall. No intra- or extrahepatic biliary ductal dilation. PANCREAS: Normal. SPLEEN: Normal. BOWEL: Normal. The appendix is normal. ADRENALS: Normal. KIDNEYS AND URETER: Left pyelonephritis with areas of developing phlegmon. Thickening and fat strandi ng of the right ureter could be seen with ureteritis. BLADDER: Normal. REPRODUCTIVE ORGANS: The uterus is absent. LYMPH NODES:No lymphadenopathy. PERITONEUM: No ascites or free air. No other fluid collection. VESSELS: Scattered atherosclerotic calcifications are noted. RETROPERITONEUM: Normal. ABDOMINAL WALL: Normal. BONES: Scattered osseous degenerative changes are noted. IMPRESSION: Left pyelonephritis with areas of developing phlegmon. Thickening and fat stranding of the right ureter could be seen with ureteritis.
[2024-12-27] MEDS: KETOROLAC TROMETH 30 MG/ML 1ML VIAL IV ONE (12:35)
[2024-12-27] MEDS: PIPERACILLIN-TAZOB 3.375GM 100 ML IV SCH (12:39)
--- NOTE | 2024-12-27 15:37 | DVH ---
CHEST RADIOGRAPH Indication: hypoxia Technique: Single frontal view of the chest was obtained Comparison: None FINDINGS: Lines and Tubes: None Lungs: Right hemidiaphragm is elevated. Right basilar opacities. Pleura: No effusion. No pneumothorax. Cardiomediastinal contours: Unremarkable Bones: No acute osseous abnormality. IMPRESSION: 1. Right hemidiaphragm elevated. 2. Right basilar opacities representing atelectasis or pneumonia.
--- NOTE | 2024-12-27 16:18 | DVHPNRES ---
Progress Note Date Seen: Dec 27, 2024 Resident Creating Document: DOUG CONTRERAS RESIDENT Medical Necessity Reason Pt with a Central, PICC or Fol: No Subjective Review of Systems Patient is a 60-year-old morbidly obese female with past medical history of [id number] type 2 diabetes mellitus, hypertension, hypothyroidism, who presented to the ED with generalized weakness, diffuse abdominal pain mostly on the left side, and uncontrolled hyperglycemia. Patient complained of burning sensation in the urine, chills, fevers, nausea, vomiting, dizziness, shortness of breath without cough, intermittent headaches, pain in both legs, since last 6 days. Patient seen at bedside. Patient appears alert x3, in moderate distress, she complains of diffuse abdominal pain more in the left hypochondriac and suprapubic region. She also reports feeling dizzy, nausea, intermittent headaches, pain in both legs, pain in her left arm due to a fall 2 months ago, shortness of breath, reports that she vomited 2 times since Saturday, has a history of constipation. Ultrasound shows Cholelithiasis with gallbladder wall thickening suggestive of acute cholecystitis, Probable hepatic steatosis with focal fatty sparing adjacent to the gallbladder fossa. chest xray shows Right hemidiaphragm elevated, Right basilar opacities representing atelectasis or pneumonia. Abdominal CT shows Left pyelonephritis with areas of developing phlegmon, Thickening and fat stranding of the right ureter could be seen with ureteritis. Surgery was consulted and recommended to get a HIDA scan and a CT of the abdomen and pelvis. If the HIDA is positive then we will proceed with a laparoscopic cholecystectomy. Patient past surgical history includes a C- section and hysterectomy. Patient denies any alcohol, tobacco or drug use but has used marijuana in the past. Constitutional: Denies weight loss, but has fever and chills. HEENT: Denies changes in vision and hearing. Respiratory: shortness of breath with excretion Cardiovascular: Denies chest discomfort or palpitations GI: diffuse abdominal pain : Burning with urination Musculoskeletal: Denies myalgias and joint pain Skin: Denies rash and pruritus. Neurological: has dizziness, headache, but no vision or hearing problems Objective vital signs Vital Sign Date Time Temp Pulse Resp B/P (MAP) Pulse Ox O2 Delivery O2 Flow Rate FiO2 12/27/24 08:15 95 Room Air* 0 21 12/27/24 07:05 99.2 73 16 123/67 (85) 99.2 Total Intake and Output 12/26/24 12/26/24 12/27/24 15:00 23:00 07:00 Intake Total 1050 ml Balance 1050 ml medications Current Medications Medications Dose Ordered Sig/Greg Route Start Time Stop Time Status Last Admin Dose Admin Acetaminophen 650 mg Q6HP PRN PO 12/27/24 02:45 Diagnostic Test (Pha) 1 strip Q6HR 12/27/24 06:00 12/27/24 12:00 1 STRIP Dextrose 50 ml UD PRN IV 12/27/24 02:45 Ondansetron HCl 4 mg ONCE PRN IV 12/27/24 02:45 Pantoprazole Sodium 40 mg DAILY IV 12/28/24 10:00 Piperacillin Sod/ Tazobactam Sod 100 ml @ 25 mls/hr Q8HR IV 12/27/24 07:00 12/27/24 12:39 25 MLS/HR Ketorolac Tromethamine 15 mg Q6HPRN PRN IV 12/27/24 12:00 01/01/25 11:59 Insulin Glargine 15 units HS SC 12/27/24 22:00 Insulin Human Lispro 3 units AC SC 12/27/24 17:00 Sodium Chloride 1,000 ml @ 75 mls/hr [id number] IV 12/27/24 14:45 Examination General: Patient alert and oriented in person, place and time. Patient following commands. HEENT: Normocephalic, atraumatic, moist mucous membranes Respiratory/pulmonary: Clear lungs bilaterally, vesicular murmurs present in almost all lung soares, no associated crackles or wheezes. Cardiovascular: Normal heart sounds S1 and S2 with no associated murmurs Abdomen: Abdomen nondistended,diffuse abdominal pain more in the Left hypochondic and suprapubic region , no palpable masses. Obese Abdomen Extremities: There is no peripheral edema present at the lower extremities. Peripheral Pulses: 3+ Radial (R). 3+ Radial (L). 3+ Dorsalis pedis (R). 3+ Dorsalis pedis(L) Skin: No rashes or pruritus, there is no sacral edema present at this time. Neurological: Intact cranial nerves with no focal neurologic deficits laboratory and microbiology Laboratory Tests 12/27/24 03:11 Test 12/27/24 03:11 Range/Units Serum Glucose 378 H 74-106 mg/dL Problem List/Assessment/Plan Problem List/Assessment/Plan # Possible acute cholecystitis - Ultrasound Abdomen shows Cholelithiasis with gallbladder wall thickening suggestive of acute cholecystitis, Probable hepatic steatosis with focal fatty sparing adjacent to the gallbladder fossa. -Surgery consulted and recommended to get a HIDA scan and a CT of the abdomen and pelvis. If the HIDA is positive then we will proceed with a laparoscopic cholecystectomy. # Left pyelonephritis # Acute complicated UTI # Sepsis likely due to pyelonephritis - IV Zosyn 3.375 gm Q8 hour - CT abdomen with contrast shows Left pyelonephritis with areas of developing phlegmon, Thickening and fat stranding of the right ureter could be seen with ureteritis. # Uncontrolled type 2 diabetes mellitus, HBA1C 12.3 - lantus 15 units, Lispro 3 units - Accu check # Pseudohyponatremia likely secondary to hyperglycemia - corrected # Transaminitis - AST 42, ALT, 45 ALP 207, - monitor CMP DVT ppx: hold for possible procedure PPI ppx: Protonix 40 mg Goals of care discussed with the patient for over 20 minutes: full code Case discussed with Dr. Mathews Plan discussed with: Patient Date of Service: Dec 27, 2024 Billing Provider: CONCEPCION MATHEWS MD Common Visit Codes: [id number] INP/OBS CARE(HIGH) DOUG CONTRERAS RESIDENT Dec 27, 2024 16:18 CONCEPCION MATHEWS MD Dec 29, 2024 13:46
[2024-12-27] MEDS: SODIUM CHLORIDE 0.9% 1,000 ML IV SCH (16:41)
[2024-12-27] MEDS: INSULIN LISPRO (HUMAN) 100 UNITS/ML ML SC SCH (17:00)
[2024-12-27] MEDS ORDERED: INSULIN LANTUS (GLARGINE) 1 /0.01ml (100units/ml) SC SCH (22:00)
[2024-12-27] MEDS: INSULIN LANTUS (GLARGINE) 1 /0.01ml (100units/ml) SC SCH (22:33)
[2024-12-28] VITALS (8 sets, daily range): BP systolic 104–132; BP diastolic 57–79; PULSE 62–77; RESP 14–19; TEMP 97.7–98.3; O2SAT 92–96
--- NOTE | 2024-12-28 06:54 | DVH ---
CHEST RADIOGRAPH Indication: evaluate for acute cardiopulmonary process Technique: Single frontal view of the chest was obtained COMPARISON: XY CHEST PORTABLE on DOS: 12/27/24 FINDINGS: Lines and Tubes: None Lungs: Mild diffuse increased prominence of the pulmonary vasculature. No evidence of focal consolida tion. Pleura: No effusion. No pneumothorax. Cardiomediastinal contours: Unremarkable Bones: Unremarkable IMPRESSION: 1. No acute disease. Mild diffuse increased prominence of the pulmonary vasculature.
[2024-12-28 08:09] LABS: Anion Gap 12 (5-15); Carbon Dioxide 25 mmol/L (20-31); Chloride 105 mmol/L (98-107); Sodium 142 mmol/L (136-145)
[2024-12-28 08:10] LABS: Calcium 9.3 mg/dL (8.7-10.4)
[2024-12-28 08:12] LABS: Potassium 3.4 mmol/L (3.5-5.1)
[2024-12-28 08:15] LABS: BUN/Creatinine Ratio 20.8 (10.0-20.0); Blood Urea Nitrogen 15 mg/dL (9-23)
[2024-12-28 08:16] LABS: Hematocrit 39.0 % (36.0-46.0); Hemoglobin 12.9 g/dL (12.2-16.2); Mean Corpuscular Hemoglobin 29.1 pg (28.0-32.0); Mean Corpuscular Volume 87.7 fL (80.0-100.0); Nucleated Red Blood Cells % 0.0 %
[2024-12-28 08:18] LABS: Glucose 273 mg/dL (74-106)
[2024-12-28] MEDS: PANTOPRAZOLE 40 MG/10 ML VIAL INJ IV SCH (08:24)
[2024-12-28] MEDS ORDERED: cefTRIAXone 1GM/50ML D5W 50 ML IV SCH (09:00)
[2024-12-28] MEDS: POTASSIUM EFFERVESENT TAB 25 MEQ GT ONE (10:00)
--- NOTE | 2024-12-28 14:32 | DVH ---
CLINICAL INFORMATION: Possible acute cholecystitis. TECHNIQUE: 6.5 mCi of Choletec were administered intravenously. Images of the upper abdomen were ob tained at 1 minute intervals up to a total time of 45 minutes. COMPARISON: CT dated 12/27/2024. Ultrasound dated 12/27/2024. FINDINGS: There is prompt gallbladder visualization. There is prompt excretion of activity from the biliary ductal system into the small bowel. There is no evidence of acute cholecystitis. IMPRESSION: No scintigraphic evidence of acute cholecystitis. Correlate with clinical findings.
--- NOTE | 2024-12-28 15:56 | DVHPN2 ---
Progress Note - Dictate Date Seen: Dec 28, 2024 Medical Necessity Reason Pt with a Central, PICC or Fol: No Subjective E: no major events o/n. pain slt better. +hungry. vital signs Vital Sign Date Time Temp Pulse Resp B/P (MAP) Pulse Ox O2 Delivery O2 Flow Rate FiO2 12/28/24 09:00 97.9 77 16 124/79 (94) 94 97.9 12/28/24 08:00 Room Air* 0 21 Total Intake and Output 12/27/24 12/27/24 12/28/24 15:00 23:00 07:00 Intake Total 100 ml 0 ml Balance 100 ml 0 ml medications Current Medications Medications Dose Ordered Sig/Greg Route Start Time Stop Time Status Last Admin Dose Admin Acetaminophen 650 mg Q6HP PRN PO 12/27/24 02:45 Diagnostic Test (Pha) 1 strip Q6HR 12/27/24 06:00 12/28/24 12:15 1 STRIP Dextrose 50 ml UD PRN IV 12/27/24 02:45 Ondansetron HCl 4 mg ONCE PRN IV 12/27/24 02:45 Pantoprazole Sodium 40 mg DAILY IV 12/28/24 10:00 12/28/24 08:24 40 MG Piperacillin Sod/ Tazobactam Sod 100 ml @ 25 mls/hr Q8HR IV 12/27/24 07:00 12/28/24 06:36 25 MLS/HR Ketorolac Tromethamine 15 mg Q6HPRN PRN IV 12/27/24 12:00 01/01/25 11:59 Insulin Glargine 15 units HS SC 12/27/24 22:00 12/27/24 22:33 15 UNITS Insulin Human Lispro 3 units AC SC 12/27/24 17:00 Sodium Chloride 1,000 ml @ 75 mls/hr [id number] IV 12/27/24 14:45 12/28/24 04:05 75 MLS/HR objective GEN: NAD ABD: min diffuse TTP. HIDA: neg for acute cholecystitis CT abd/pelvis: L pyelonephritis with developing phlegmon. laboratory and microbiology Laboratory Tests 12/28/24 06:37 Test 12/28/24 06:37 Range/Units Serum Glucose 273 H 74-106 mg/dL Assessment/Plan A: 1. L pyelonephritis with developing phlegmon 2. chronic cholecystitis w/o acute cholecystitis P: 1. no acute surgery for GB. recommend outpatient elective surgery once pyelonephritis resolves. 2. d/w family. Plan discussed with: Patient, Other (family) SHANIKA TELLEZ MD Dec 28, 2024 15:56
--- NOTE | 2024-12-28 16:14 | DVHPNRES ---
Progress Note Date Seen: Dec 28, 2024 Resident Creating Document: DOUG CONTRERAS RESIDENT Medical Necessity Reason Pt with a Central, PICC or Fol: No Subjective Review of Systems Patient is a 60-year-old morbidly obese female with past medical history of [id number] type 2 diabetes mellitus, hypertension, hypothyroidism, who presented to the ED with generalized weakness, diffuse abdominal pain mostly on the left side, and uncontrolled hyperglycemia. Patient complained of burning sensation in the urine, chills, fevers, nausea, vomiting, dizziness, shortness of breath without cough, intermittent headaches, pain in both legs, since last 6 days. Patient appears alert x3, in moderate distress, she complains of diffuse abdominal pain more in the left hypochondriac and suprapubic region. She also reports feeling dizzy, nausea, intermittent headaches, pain in both legs, pain in her left arm due to a fall 2 months ago, shortness of breath, reports that she vomited 2 times since Saturday, has a history of constipation. Ultrasound shows Cholelithiasis with gallbladder wall thickening suggestive of acute cholecystitis, Probable hepatic steatosis with focal fatty sparing adjacent to the gallbladder fossa. chest xray shows Right hemidiaphragm elevated, Right basilar opacities representing atelectasis or pneumonia. Abdominal CT shows Left pyelonephritis with areas of developing phlegmon, Thickening and fat stranding of the right ureter could be seen with ureteritis. Surgery was consulted and recommended to get a HIDA scan and a CT of the abdomen and pelvis. If the HIDA is positive then we will proceed with a laparoscopic cholecystectomy. Patient past surgical history includes a and hysterectomy. Patient denies any alcohol, tobacco or drug use but has used marijuana in the past. Patient seen at bedside. Patient appears alert x3, comfortable, she reports he is feeling better than yesterday, she does not complain of any abdominal pain, nausea, vomiting, diarrhea, headache, dizziness, shortness of breath today. HIDA scan was taken and shows No scintigraphic evidence of acute cholecystitis. Correlate with clinical findings. GI recomended no acute surgery for GB and outpatient elective surgery once pyelonephritis resolves. Blood culture shows Growth Of Coagulase Negative Staphylococcus. Repeat blood culture was ordered, and Lovenox is started. Objective vital signs Vital Sign Date Time Temp Pulse Resp B/P (MAP) Pulse Ox O2 Delivery O2 Flow Rate FiO2 7/21/25 09:00 97.9 77 16 124/79 (94) 94 97.9 12/28/24 08:00 Room Air* 0 21 Total Intake and Output 12/27/24 12/27/24 12/28/24 15:00 23:00 07:00 Intake Total 100 ml 0 ml Balance 100 ml 0 ml medications Current Medications Medications Dose Ordered Sig/Greg Route Start Time Stop Time Status Last Admin Dose Admin Acetaminophen 650 mg Q6HP PRN PO 12/27/24 02:45 Diagnostic Test (Pha) 1 strip Q6HR 12/27/24 06:00 12/28/24 12:15 1 STRIP Dextrose 50 ml UD PRN IV 12/27/24 02:45 Ondansetron HCl 4 mg ONCE PRN IV 12/27/24 02:45 Pantoprazole Sodium 40 mg DAILY IV 12/28/24 10:00 12/28/24 08:24 40 MG Piperacillin Sod/ Tazobactam Sod 100 ml @ 25 mls/hr Q8HR IV 12/27/24 07:00 12/28/24 15:57 25 MLS/HR Ketorolac Tromethamine 15 mg Q6HPRN PRN IV 12/27/24 12:00 01/01/25 11:59 Insulin Glargine 15 units HS SC 12/27/24 22:00 12/27/24 22:33 15 UNITS Insulin Human Lispro 3 units AC SC 12/27/24 17:00 Sodium Chloride 1,000 ml @ 75 mls/hr [id number] IV 12/27/24 14:45 12/28/24 04:05 75 MLS/HR laboratory and microbiology Laboratory Tests 12/28/24 06:37 Test 12/28/24 06:37 Range/Units Serum Glucose 273 H 74-106 mg/dL Microbiology Date/Time Source Procedure Growth Status 12/27/24 03:11 Blood Blood Culture - Preliminary Resulted Problem List/Assessment/Plan Problem List/Assessment/Plan # Possible acute cholecystitis - Ultrasound Abdomen shows Cholelithiasis with gallbladder wall thickening suggestive of acute cholecystitis, Probable hepatic steatosis with focal fatty sparing adjacent to the gallbladder fossa. - Surgery consulted and recommended to get a HIDA scan and a CT of the abdomen and pelvis. If the HIDA is positive then we will proceed with a laparoscopic cholecystectomy. - HIDA scan shows No scintigraphic evidence of acute cholecystitis. Correlate with clinical findings. - GI recomended no acute surgery for GB and outpatient elective surgery once pyelonephritis resolves. # Left pyelonephritis # Acute complicated UTI # Sepsis likely due to pyelonephritis - IV Zosyn 3.375 gm Q8 hour - CT abdomen with contrast shows Left pyelonephritis with areas of developing phlegmon, Thickening and fat stranding of the right ureter could be seen with urethritis. # Uncontrolled type 2 diabetes mellitus, HBA1C 12.3 - lantus 15 units, Lispro 3 units - Accu check # Pseudohyponatremia likely secondary to hyperglycemia - corrected #Hypokalemia - given potassium # Transaminitis - AST 42, ALT, 45 ALP 207, - monitor CMP DVT ppx: Lovenox PPI ppx: Protonix 40 mg Goals of care discussed with the patient for over 20 minutes: full code Case discussed with Dr. Mathews Plan discussed with: Patient Date of Service: Dec 28, 2024 Billing Provider: CONCEPCION MATHEWS MD Common Visit Codes: [id number] INP/OBS CARE(HIGH) DOUG CONTRERAS RESIDENT Dec 28, 2024 16:14 CONCEPCION MATHEWS MD Dec 31, 2024 14:20
[2024-12-28] MEDS: ENOXAPARIN SOD 40 MG/0.4 ML SYRINGE SC ONE (17:44)
[2024-12-29] VITALS (7 sets, daily range): BP systolic 94–144; BP diastolic 48–82; PULSE 52–87; RESP 12–17; TEMP 95.5–98.8; O2SAT 92–97
[2024-12-29] MEDS: KETOROLAC TROMETH 30 MG/ML 1ML VIAL IV PRN (05:55)
[2024-12-29] MEDS: INSULIN LISPRO (HUMAN) 100 UNITS/ML ML SC SCH (06:55)
[2024-12-29 07:32] LABS: Hematocrit 37.0 % (36.0-46.0); Hemoglobin 12.5 g/dL (12.2-16.2); Mean Corpuscular Hemoglobin 29.4 pg (28.0-32.0); Mean Corpuscular Volume 87.0 fL (80.0-100.0); Nucleated Red Blood Cells % 0.1 %
[2024-12-29 07:37] LABS: Calcium 8.7 mg/dL (8.7-10.4); Chloride 101 mmol/L (98-107); Sodium 138 mmol/L (136-145)
[2024-12-29 07:38] LABS: Anion Gap 11 (5-15); Carbon Dioxide 26 mmol/L (20-31)
[2024-12-29 07:43] LABS: BUN/Creatinine Ratio 14.9 (10.0-20.0); Blood Urea Nitrogen 10 mg/dL (9-23)
[2024-12-29 07:44] LABS: Glucose 293 mg/dL (74-106); Potassium 3.2 mmol/L (3.5-5.1)
[2024-12-29] MEDS: ENOXAPARIN SOD 40 MG/0.4 ML SYRINGE SC SCH (10:14)
[2024-12-29] MEDS: POTASSIUM EFFERVESENT TAB 25 MEQ GT ONE (13:17)
[2024-12-29] MEDS: cefTRIAXone 1GM/50ML D5W 50 ML IV ONE (13:25)
[2024-12-29 15:12] LABS: Cannabinoid Screen, Urine Neg (NEGATIVE)
[2024-12-29 15:19] LABS: Amphetamine Screen, Urine Neg (NEGATIVE); Barbiturate Scree,Urine Neg (NEGATIVE); Benzodiazephine Screen, Urine Neg (NEGATIVE); Cocaine Screen, Urine Neg (NEGATIVE); Opiate Scree,Urine Neg (NEGATIVE); Phencyclidine Screen, Urine Neg (NEGATIVE)
--- NOTE | 2024-12-29 16:21 | DVHPNRES ---
Progress Note Date Seen: Dec 29, 2024 Resident Creating Document: DOUG CONTRERAS RESIDENT Medical Necessity Reason Pt with a Central, PICC or Fol: No Subjective Review of Systems Patient is a 60-year-old morbidly obese female with past medical history of [id number] type 2 diabetes mellitus, hypertension, hypothyroidism, who presented to the ED with generalized weakness, diffuse abdominal pain mostly on the left side, and uncontrolled hyperglycemia. Patient complained of burning sensation in the urine, chills, fevers, nausea, vomiting, dizziness, shortness of breath without cough, intermittent headaches, pain in both legs, since last 6 days. Patient appears alert x3, in moderate distress, she complains of diffuse abdominal pain more in the left hypochondriac and suprapubic region. She also reports feeling dizzy, nausea, intermittent headaches, pain in both legs, pain in her left arm due to a fall 2 months ago, shortness of breath, reports that she vomited 2 times since Saturday, has a history of constipation. Ultrasound shows Cholelithiasis with gallbladder wall thickening suggestive of acute cholecystitis, Probable hepatic steatosis with focal fatty sparing adjacent to the gallbladder fossa. chest xray shows Right hemidiaphragm elevated, Right basilar opacities representing atelectasis or pneumonia. Abdominal CT shows Left pyelonephritis with areas of developing phlegmon, Thickening and fat stranding of the right ureter could be seen with ureteritis. Surgery was consulted and recommended to get a HIDA scan and a CT of the abdomen and pelvis. If the HIDA is positive then we will proceed with a laparoscopic cholecystectomy. Patient past surgical history includes a and hysterectomy. Patient denies any alcohol, tobacco or drug use but has used marijuana in the past. Patient seen at bedside. Patient is alert x3, comfortable, states that she has been feeling better, Patient denies any abdominal pain, nausea, vomiting, dizziness, headaches. Patient was changed from IV Zosyn to IV ceftriaxone. Objective vital signs Vital Sign Date Time Temp Pulse Resp B/P (MAP) Pulse Ox O2 Delivery O2 Flow Rate FiO2 12/29/24 13:00 97.5 63 17 107/60 (76) 94 97.5 12/28/24 20:00 Room Air* 0 21 Total Intake and Output 12/28/24 12/28/24 12/29/24 15:00 23:00 07:00 Intake Total 100 ml 100 ml 700 ml Balance 100 ml 100 ml 700 ml medications Current Medications Medications Dose Ordered Sig/Greg Route Start Time Stop Time Status Last Admin Dose Admin Acetaminophen 650 mg Q6HP PRN PO 12/27/24 02:45 Diagnostic Test (Pha) 1 strip Q6HR 12/27/24 06:00 12/29/24 12:00 1 STRIP Dextrose 50 ml UD PRN IV 12/27/24 02:45 Ondansetron HCl 4 mg ONCE PRN IV 12/27/24 02:45 Pantoprazole Sodium 40 mg DAILY IV 12/28/24 10:00 12/29/24 10:14 40 MG Ketorolac Tromethamine 15 mg Q6HPRN PRN IV 12/27/24 12:00 01/01/25 11:59 12/29/24 05:55 15 MG Sodium Chloride 1,000 ml @ 75 mls/hr [id number] IV 12/27/24 14:45 12/29/24 10:15 75 MLS/HR Enoxaparin Sodium 40 mg DAILY SC 12/29/24 10:00 12/29/24 10:14 40 MG Insulin Glargine 20 units HS SC 12/29/24 22:00 Insulin Human Lispro 5 units AC SC 12/29/24 06:30 12/29/24 11:30 5 UNITS Ceftriaxone Sodium 50 ml @ 100 mls/hr DAILY@09 IV 12/30/24 09:00 Examination General: Patient alert and oriented in person, place and time. Patient following commands. HEENT: Normocephalic, atraumatic, moist mucous membranes Respiratory/pulmonary: Clear lungs bilaterally, vesicular murmurs present in almost all lung saores, no associated crackles or wheezes. Cardiovascular: Normal heart sounds S1 and S2 with no associated murmurs Abdomen: Abdomen nondistended, there is no pain to palpation in any of the abdominal quadrants, no palpable masses. obese abdomen Extremities: There is no peripheral edema present at the lower extremities. Peripheral Pulses: 3+ Radial (R). 3+ Radial (L). 3+ Dorsalis pedis (R). 3+ Dorsalis pedis(L) Skin: No rashes or pruritus, there is no sacral edema present at this time. Neurological: Intact cranial nerves with no focal neurologic deficits laboratory and microbiology Laboratory Tests 12/29/24 06:24 Test 12/29/24 06:24 Range/Units Serum Glucose 293 H 74-106 mg/dL Microbiology Date/Time Source Procedure Growth Status 12/27/24 03:11 Blood Blood Culture - Final Staphylococcus haemolyticus Complete Problem List/Assessment/Plan Problem List/Assessment/Plan # Possible acute cholecystitis - Ultrasound Abdomen shows Cholelithiasis with gallbladder wall thickening suggestive of acute cholecystitis, Probable hepatic steatosis with focal fatty sparing adjacent to the gallbladder fossa. - Surgery consulted and recommended to get a HIDA scan and a CT of the abdomen and pelvis. If the HIDA is positive then we will proceed with a laparoscopic cholecystectomy. - HIDA scan shows No scintigraphic evidence of acute cholecystitis. Correlate with clinical findings. - GI recomended no acute surgery for GB and outpatient elective surgery once pyelonephritis resolves. # Left pyelonephritis # Acute complicated UTI # Sepsis likely due to pyelonephritis - IV Zosyn changed to IV ceftriaxone - CT abdomen with contrast shows Left pyelonephritis with areas of developing phlegmon, Thickening and fat stranding of the right ureter could be seen with urethritis. # Uncontrolled type 2 diabetes mellitus, HBA1C 12.3 - lantus 15 units, Lispro 3 units - Accu check # Pseudohyponatremia likely secondary to hyperglycemia - corrected #Hypokalemia - given potassium # Transaminitis - AST 42, ALT, 45 ALP 207, - monitor CMP DVT ppx: Lovenox PPI ppx: Protonix 40 mg Goals of care discussed with the patient for over 20 minutes: full code Case discussed with Dr. Mathews Plan discussed with: Patient My Orders My Orders Orders - DOUG CONTRERAS Procedure Category Date Status Time Blood Culture LYNDON 12/28/24 Uncollected 16:19 Enoxaparin Sodium PHA 12/29/24 In Process (Lovenox) 10:00 Date of Service: Dec 29, 2024 Billing Provider: CONCEPCION MATHEWS MD Common Visit Codes: [id number] INP/OBS CARE(HIGH) DOUG CONTRERAS Dec 29, 2024 16:21 CONCEPCION MATHEWS MD Dec 31, 2024 14:31
[2024-12-29] MEDS: ACETAMINOPHEN 325 MG TAB PO PRN (17:30)
[2024-12-29] MEDS: INSULIN LANTUS (GLARGINE) 1 /0.01ml (100units/ml) SC SCH (23:28)
[2024-12-30 05:27] VITALS: BP 120/73; PULSE 66; RESP 18; TEMP 99.2; O2SAT 95
[2024-12-30 07:09] LABS: Anion Gap 11 (5-15); Carbon Dioxide 26 mmol/L (20-31); Chloride 101 mmol/L (98-107); Potassium 3.8 mmol/L (3.5-5.1); Sodium 138 mmol/L (136-145)
[2024-12-30 07:10] LABS: Calcium 9.0 mg/dL (8.7-10.4)
[2024-12-30 07:15] LABS: BUN/Creatinine Ratio 9.7 (10.0-20.0)
[2024-12-30 07:24] LABS: Blood Urea Nitrogen 6 mg/dL (9-23); Glucose 257 mg/dL (74-106)
[2024-12-30 09:00] VITALS: BP 116/72; PULSE 59; RESP 18; TEMP 98.4; O2SAT 95
[2024-12-30] MEDS: cefTRIAXone 1GM/50ML D5W 50 ML IV SCH (10:40)
[2024-12-30 13:00] VITALS: BP 103/54; PULSE 63; RESP 18; TEMP 98.3; O2SAT 96
--- NOTE | 2024-12-30 16:29 | DVHPNRES ---
Progress Note Date Seen: Dec 30, 2024 Resident Creating Document: DOUG CONTRERAS RESIDENT Medical Necessity Reason Pt with a Central, PICC or Fol: No Subjective Review of Systems Patient is a 60-year-old morbidly obese female with past medical history of [id number] type 2 diabetes mellitus, hypertension, hypothyroidism, who presented to the ED with generalized weakness, diffuse abdominal pain mostly on the left side, and uncontrolled hyperglycemia. Patient complained of burning sensation in the urine, chills, fevers, nausea, vomiting, dizziness, shortness of breath without cough, intermittent headaches, pain in both legs, since last 6 days. Patient appears alert x3, in moderate distress, she complains of diffuse abdominal pain more in the left hypochondriac and suprapubic region. She also reports feeling dizzy, nausea, intermittent headaches, pain in both legs, pain in her left arm due to a fall 2 months ago, shortness of breath, reports that she vomited 2 times since Saturday, has a history of constipation. Ultrasound shows Cholelithiasis with gallbladder wall thickening suggestive of acute cholecystitis, Probable hepatic steatosis with focal fatty sparing adjacent to the gallbladder fossa. chest xray shows Right hemidiaphragm elevated, Right basilar opacities representing atelectasis or pneumonia. Abdominal CT shows Left pyelonephritis with areas of developing phlegmon, Thickening and fat stranding of the right ureter could be seen with ureteritis. Surgery was consulted and recommended to get a HIDA scan and a CT of the abdomen and pelvis. If the HIDA is positive then we will proceed with a laparoscopic cholecystectomy. Patient past surgical history includes a and hysterectomy. Patient denies any alcohol, tobacco or drug use but has used marijuana in the past. Patient was changed IV Zosyn to IV ceftriaxone. Patient seen at bedside. She appears alert x3, comfortable, says she feels better than yesterday, patient has been eating and tolerating food and had a normal bowel movement. She denies any nausea, vomiting, diarrhea, headaches, dizziness, constipation. Blood culture shows staph hemolyticus. Repeat blood culture was sent and IV ceftriaxone was changed to IV levofloxacin. Objective vital signs Vital Sign Date Time Temp Pulse Resp B/P (MAP) Pulse Ox O2 Delivery O2 Flow Rate FiO2 12/30/24 13:00 98.3 63 18 103/54 (70) 96 98.3 12/29/24 20:00 Room Air* 0 21 Total Intake and Output 12/29/24 12/29/24 12/30/24 15:00 23:00 07:00 Intake Total 1000 ml 440 ml Balance 1000 ml 440 ml medications Current Medications Medications Dose Ordered Sig/Greg Route Start Time Stop Time Status Last Admin Dose Admin Acetaminophen 650 mg Q6HP PRN PO 12/27/24 02:45 12/29/24 17:30 650 MG Diagnostic Test (Pha) 1 strip Q6HR 12/27/24 06:00 12/30/24 12:12 1 STRIP Dextrose 50 ml UD PRN IV 12/27/24 02:45 Ondansetron HCl 4 mg ONCE PRN IV 12/27/24 02:45 Pantoprazole Sodium 40 mg DAILY IV 12/28/24 10:00 12/30/24 10:40 40 MG Ketorolac Tromethamine 15 mg Q6HPRN PRN IV 12/27/24 12:00 01/01/25 11:59 12/29/24 05:55 15 MG Sodium Chloride 1,000 ml @ 75 mls/hr [id number] IV 12/27/24 14:45 12/30/24 10:47 75 MLS/HR Enoxaparin Sodium 40 mg DAILY SC 12/29/24 10:00 12/30/24 10:40 40 MG Insulin Glargine 20 units HS SC 12/29/24 22:00 12/29/24 23:28 20 UNITS Insulin Human Lispro 5 units AC SC 12/29/24 06:30 12/30/24 12:13 5 UNITS Levofloxacin/ Dextrose 100 ml @ 100 mls/hr DAILY IV 12/31/24 10:00 Examination General: Patient alert and oriented in person, place and time. Patient following commands. HEENT: Normocephalic, atraumatic, moist mucous membranes Respiratory/pulmonary: Clear lungs bilaterally, vesicular murmurs present in almost all lung soares, no associated crackles or wheezes. Cardiovascular: Normal heart sounds S1 and S2 with no associated murmurs Abdomen: Abdomen nondistended, there is no pain to palpation in any of the abdominal quadrants, no palpable masses. Obese abdomen Extremities: There is no peripheral edema present at the lower extremities. Peripheral Pulses: 3+ Radial (R). 3+ Radial (L). 3+ Dorsalis pedis (R). 3+ Dorsalis pedis(L) Skin: No rashes or pruritus, there is no sacral edema present at this time. Neurological: Intact cranial nerves with no focal neurologic deficits laboratory and microbiology Laboratory Tests 12/30/24 06:22 12/29/24 06:24 Test 12/30/24 06:22 Range/Units Serum Glucose 257 H 74-106 mg/dL Microbiology Date/Time Source Procedure Growth Status 12/29/24 14:00 Urine - Midstream Clean Catch Urine Culture - Preliminary Resulted 12/27/24 03:11 Blood Blood Culture - Final Staphylococcus haemolyticus Complete Problem List/Assessment/Plan Problem List/Assessment/Plan # Possible acute cholecystitis - Ultrasound Abdomen shows Cholelithiasis with gallbladder wall thickening suggestive of acute cholecystitis, Probable hepatic steatosis with focal fatty sparing adjacent to the gallbladder fossa. - Surgery consulted and recommended to get a HIDA scan and a CT of the abdomen and pelvis. If the HIDA is positive then we will proceed with a laparoscopic cholecystectomy. - HIDA scan shows No scintigraphic evidence of acute cholecystitis. Correlate with clinical findings. - GI recomended no acute surgery for GB and outpatient elective surgery once pyelonephritis resolves. # Left pyelonephritis # Acute complicated UTI # Sepsis likely due to pyelonephritis - IV ceftriaxone changed to IV Levofloxacin - CT abdomen with contrast shows Left pyelonephritis with areas of developing phlegmon, Thickening and fat stranding of the right ureter could be seen with urethritis. - blood culture shows Staph. hemolyticus # Uncontrolled type 2 diabetes mellitus, HBA1C 12.3 - lantus 15 units, Lispro 3 units - Accu check # Pseudohyponatremia likely secondary to hyperglycemia - corrected #Hypokalemia - given potassium # Transaminitis - AST 42, ALT, 45 ALP 207, - monitor CMP DVT ppx: Lovenox PPI ppx: Protonix 40 mg Goals of care discussed with the patient for over 20 minutes: full code Case discussed with Dr. Omar Mayers discussed with: Patient My Orders My Orders Orders - DOUG CONTRERAS RESIDENT Procedure Category Date Status Time Levofloxacin 500mg PHA 12/31/24 In Process (Levaquin 500mg/ 100m 10:00 Date of Service: Dec 30, 2024 Billing Provider: CONCEPCION MATHEWS MD Common Visit Codes: [id number] INP/OBS CARE(HIGH) DOUG CONTRERAS RESIDENT Dec 30, 2024 16:29 CONCEPCION MATHEWS MD Jan 05, 2025 20:04
[2024-12-30 17:00] VITALS: BP 117/78; PULSE 80; RESP 18; TEMP 98.6; O2SAT 98
[2024-12-30 21:00] VITALS: BP 117/72; PULSE 60; RESP 16; TEMP 97.7; O2SAT 96
[2024-12-31 05:24] VITALS: BP 128/77; PULSE 84; RESP 18; TEMP 99.4; O2SAT 95
[2024-12-31] MEDS ORDERED: INSULIN LANTUS (GLARGINE) 1 /0.01ml (100units/ml) SC SCH (06:45)
[2024-12-31] MEDS: INSULIN LISPRO (HUMAN) 100 UNITS/ML ML SC SCH (07:00)
[2024-12-31 07:17] LABS: Calcium 9.1 mg/dL (8.7-10.4); Chloride 101 mmol/L (98-107); Potassium 3.9 mmol/L (3.5-5.1); Sodium 136 mmol/L (136-145)
[2024-12-31 07:18] LABS: Anion Gap 10 (5-15); Carbon Dioxide 25 mmol/L (20-31)
[2024-12-31 07:25] LABS: BUN/Creatinine Ratio 7.8 (10.0-20.0); Blood Urea Nitrogen < 5 mg/dL (9-23); Glucose 251 mg/dL (74-106)
[2024-12-31 09:00] VITALS: BP 93/59; PULSE 71; RESP 16; TEMP 98.3; O2SAT 93
[2024-12-31 13:00] VITALS: BP 101/57; PULSE 72; RESP 17; TEMP 97.3; O2SAT 96
--- NOTE | 2024-12-31 13:48 | DVHPNRES ---
Progress Note Date Seen: Dec 31, 2024 Resident Creating Document: DOUG CONTRERAS RESIDENT Medical Necessity Reason Pt with a Central, PICC or Fol: No Subjective Review of Systems Patient is a 60-year-old morbidly obese female with past medical history of oqr-utiztsu-omyjnkspe type 2 diabetes mellitus, hypertension, hypothyroidism, who presented to the ED with generalized weakness, diffuse abdominal pain mostly on the left side, and uncontrolled hyperglycemia. Patient complained of burning sensation in the urine, chills, fevers, nausea, vomiting, dizziness, shortness of breath without cough, intermittent headaches, pain in both legs, since last 6 days. Patient appears alert x3, in moderate distress, she complains of diffuse abdominal pain more in the left hypochondriac and suprapubic region. She also reports feeling dizzy, nausea, intermittent headaches, pain in both legs, pain in her left arm due to a fall 2 months ago, shortness of breath, reports that she vomited 2 times since Saturday, has a history of constipation. Ultrasound shows Cholelithiasis with gallbladder wall thickening suggestive of acute cholecystitis, Probable hepatic steatosis with focal fatty sparing adjacent to the gallbladder fossa. chest xray shows Right hemidiaphragm elevated, Right basilar opacities representing atelectasis or pneumonia. Abdominal CT shows Left pyelonephritis with areas of developing phlegmon, Thickening and fat stranding of the right ureter could be seen with ureteritis. Surgery was consulted and recommended to get a HIDA scan and a CT of the abdomen and pelvis. If the HIDA is positive then we will proceed with a laparoscopic cholecystectomy. Patient past surgical history includes a and hysterectomy. Patient denies any alcohol, tobacco or drug use but has used marijuana in the past. Patient was changed IV Zosyn to IV ceftriaxone. Patient seen at bedside. She appears alert, comfortable, says she feels better than yesterday, reported no overnight events. she denies any abdominal pain, flank pain, nausea, vomiting, diarrhea, headaches, dizziness. Patient has no new complaints. Patient is given IV levofloxacin and Lantus 21, less below 7. Possible discharge tomorrow with PO antibiotics. Objective vital signs Vital Sign Date Time Temp Pulse Resp B/P (MAP) Pulse Ox O2 Delivery O2 Flow Rate FiO2 12/31/24 09:00 98.3 71 16 93/59 (70) 93 98.3 12/30/24 20:00 Room Air* 0 21 Total Intake and Output 12/30/24 12/30/24 12/31/24 14:59 22:59 06:59 Intake Total 900 ml 1350 ml Output Total 1000 ml 0 ml Balance -100 ml 1350 ml medications Current Medications Medications Dose Ordered Sig/Greg Route Start Time Stop Time Status Last Admin Dose Admin Acetaminophen 650 mg Q6HP PRN PO 12/27/24 02:45 12/29/24 17:30 650 MG Diagnostic Test (Pha) 1 strip Q6HR 12/27/24 06:00 12/31/24 12:13 1 STRIP Dextrose 50 ml UD PRN IV 12/27/24 02:45 Ondansetron HCl 4 mg ONCE PRN IV 12/27/24 02:45 Pantoprazole Sodium 40 mg DAILY IV 12/28/24 10:00 12/31/24 09:53 40 MG Ketorolac Tromethamine 15 mg Q6HPRN PRN IV 12/27/24 12:00 01/01/25 11:59 12/31/24 10:45 15 MG Sodium Chloride 1,000 ml @ 75 mls/hr [id number] IV 12/27/24 14:45 12/31/24 06:31 75 MLS/HR Enoxaparin Sodium 40 mg DAILY SC 12/29/24 10:00 12/31/24 09:54 40 MG Levofloxacin/ Dextrose 100 ml @ 100 mls/hr DAILY IV 12/31/24 10:00 12/31/24 09:53 100 MLS/HR Insulin Human Lispro 7 units AC SC 12/31/24 06:45 12/31/24 12:14 7 UNITS Insulin Glargine 21 units HS [place] 12/31/24 22:00 Examination General: Patient alert and oriented in person, place and time. Patient following commands. HEENT: Normocephalic, atraumatic, moist mucous membranes Respiratory/pulmonary: Clear lungs bilaterally, vesicular murmurs present in almost all lung saores, no associated crackles or wheezes. Cardiovascular: Normal heart sounds S1 and S2 with no associated murmurs Abdomen: Abdomen nondistended, there is no pain to palpation in any of the abdominal quadrants, no palpable masses. Obese Abdomen Extremities: There is no peripheral edema present at the lower extremities. Peripheral Pulses: 3+ Radial (R). 3+ Radial (L). 3+ Dorsalis pedis (R). 3+ Dorsalis pedis(L) Skin: No rashes or pruritus, there is no sacral edema present at this time. Neurological: Intact cranial nerves with no focal neurologic deficits laboratory and microbiology Laboratory Tests 12/31/24 06:10 12/29/24 06:24 Test 12/31/24 06:10 Range/Units Serum Glucose 251 H 74-106 mg/dL Microbiology Date/Time Source Procedure Growth Status 12/29/24 20:03 Blood Blood Culture - Preliminary NO GROWTH AFTER 24 HOURS OF INCUBATION. Resulted 12/29/24 14:00 Urine - Midstream Clean Catch Urine Culture - Preliminary Resulted Problem List/Assessment/Plan Problem List/Assessment/Plan # Possible acute cholecystitis - Ultrasound Abdomen shows Cholelithiasis with gallbladder wall thickening suggestive of acute cholecystitis, Probable hepatic steatosis with focal fatty sparing adjacent to the gallbladder fossa. - Surgery consulted and recommended to get a HIDA scan and a CT of the abdomen and pelvis. If the HIDA is positive then we will proceed with a laparoscopic cholecystectomy. - HIDA scan shows No scintigraphic evidence of acute cholecystitis. Correlate with clinical findings. - GI recomended no acute surgery for GB and outpatient elective surgery once pyelonephritis resolves. # Left pyelonephritis # Acute complicated UTI # Sepsis likely due to pyelonephritis - IV ceftriaxone changed to IV Levofloxacin - CT abdomen with contrast shows Left pyelonephritis with areas of developing phlegmon, Thickening and fat stranding of the right ureter could be seen with urethritis. - blood culture shows Staph. hemolyticus - repeat blood culture shows negative # Uncontrolled type 2 diabetes mellitus, HBA1C 12.3 - lantus 21 units, Lispro 7 units - Accu check , monitor labs # Pseudohyponatremia likely secondary to hyperglycemia - corrected #Hypokalemia - given potassium # Transaminitis - AST 42, ALT, 45 ALP 207, - monitor CMP DVT ppx: Lovenox PPI ppx: Protonix 40 mg Goals of care discussed with the patient for over 20 minutes: full code Case discussed with Dr. Mathews Plan discussed with: Patient Dietary Evaluation Review Recommendations by RD: Dietary education by RD Comments: 1) Advance to [facility] [place] + cardiac diet as medically feasible 2) Refer [employer] for diabetes education Expected Outcomes/Goals: To meet >75% estimated needs Lab values to improve Fu 3-5 days Date of Service: Dec 30, 2024 Billing Provider: CONCEPCION MATHEWS MD Common Visit Codes: [id number] INP/OBS CARE(HIGH) DOUG CONTRERAS RESIDENT Dec 31, 2024 13:48 CONCEPCION MATHEWS MD Jan 05, 2025 20:11
[2024-12-31 17:00] VITALS: BP 127/64; PULSE 61; RESP 17; TEMP 97.9; O2SAT 95
[2024-12-31] MEDS: INSULIN LANTUS (GLARGINE) 1 /0.01ml (100units/ml) SC SCH (22:42)
[2025-01-01 07:22] LABS: Nucleated Red Blood Cells % 0.0 %
[2025-01-01 07:28] LABS: Hematocrit 37.9 % (36.0-46.0); Hemoglobin 12.9 g/dL (12.2-16.2); Mean Corpuscular Hemoglobin 29.5 pg (28.0-32.0); Mean Corpuscular Volume 87.0 fL (80.0-100.0)
[2025-01-01 07:30] LABS: Anion Gap 9 (5-15); Carbon Dioxide 27 mmol/L (20-31); Chloride 104 mmol/L (98-107); Potassium 3.6 mmol/L (3.5-5.1); Sodium 140 mmol/L (136-145)
[2025-01-01 07:31] LABS: Calcium 9.3 mg/dL (8.7-10.4)
[2025-01-01 07:36] LABS: BUN/Creatinine Ratio 8.6 (10.0-20.0); Blood Urea Nitrogen < 5 mg/dL (9-23); Glucose 158 mg/dL (74-106)
[2025-01-01 09:00] VITALS: BP 113/51; PULSE 66; RESP 18; TEMP 98.4; O2SAT 95
--- NOTE | 2025-01-01 10:23 | DVHDSRES ---
Discharge Summary Date of Admission Resident Creating Document: DOUG CONTRERAS RESIDENT Dec 27, 2024 at 03:00 Date of Discharge: Jan 01, 2025 Admitting Diagnosis #Intractable Abdominal Pain likely due to Pyelonephritis Labs/Diagnostic Data: Laboratory Results Test 01/01/25 06:43 01/01/25 06:08 12/29/24 14:00 12/27/24 04:25 White Blood Count 9.3 10^3/uL (4.4-10.8) Red Blood Count 4.36 10^6/uL (4.0-5.20) Hemoglobin 12.9 g/dL (12.2-16.2) Hematocrit 37.9 % (36.0-46.0) Mean Corpuscular Volume 87.0 fL (80.0-100.0) Mean Corpuscular Hemoglobin 29.5 pg (28.0-32.0) Mean Corpuscular Hemoglobin Concent 34.0 g/dL (32.0-36.0) Red Cell Distribution Width 13.0 % (11.8-14.3) Platelet Count 514 10^3/uL (140-450) Mean Platelet Volume 8.7 fL (6.9-10.8) Neutrophils (%) (Auto) 69.4 % (37.0-80.0) Lymphocytes (%) (Auto) 22.8 % (10.0-50.0) Monocytes (%) (Auto) 6.5 % (0.0-12.0) Eosinophils (%) (Auto) 0.8 % (0.0-7.0) Basophils (%) (Auto) 0.5 % (0.0-2.0) Neutrophils # (Auto) 6.5 10 ^3/uL (1.6-8.6) Lymphocytes # (Auto) 2.1 10 ^3/uL (0.4-5.4) Monocytes # (Auto) 0.6 10 ^3/uL (0-1.3) Eosinophils # (Auto) 0.1 10 ^3/uL (0-0.8) Basophils # (Auto) 0 10 ^3/uL (0-0.2) Nucleated Red Blood Cells 0.0 % Sodium Level 140 mmol/L (136-145) Potassium Level 3.6 mmol/L (3.5-5.1) Chloride Level 104 mmol/L (98-107) Carbon Dioxide Level 27 mmol/L (20-31) Anion Gap 9 (5-15) Blood Urea Nitrogen < 5 mg/dL (9-23) Creatinine 0.58 mg/dL (0.550-1.02) Glomerular Filtration Rate Calc 104 mL/min (>90) BUN/Creatinine Ratio 8.6 (10.0-20.0) Serum Glucose 158 mg/dL (74-106) Calcium Level 9.3 mg/dL (8.7-10.4) POC Glucose 176 mg/dl (70-106) Urine Opiates Screen Neg (NEGATIVE) Urine Fentanyl Screen Neg (NEGATIVE) Urine Barbiturates Screen Neg (NEGATIVE) Urine Phencyclidine Screen Neg (NEGATIVE) Urine Amphetamines Screen Neg (NEGATIVE) Urine Benzodiazepines Screen Neg (NEGATIVE) Urine Cocaine Screen Neg (NEGATIVE) Urine Cannabinoids Screen Neg (NEGATIVE) Influenza Type A Antigen Negative (Negative) Influenza Type B Antigen Negative (Negative) SARS-CoV-2 Antigen (Rapid) Negative (NEGATIVE) Test 12/27/24 03:11 12/26/24 23:25 12/26/24 22:52 12/26/24 22:05 Prothrombin Time 11.0 sec (9.3-11.8) Prothrombin Time INR 1.04 (0.9-1.15) Activated Partial Thromboplast Time 28.2 SEC (24.5-34.5) D-Dimer, Quantitative 2.29 mg/L FEU (0.0-0.49) Hemoglobin A1c 12.3 % A1C (<5.7) Serum Osmolality 297 mOsm/kg (278-298) Phosphorus Level 3.6 mg/dL (2.4-5.1) Magnesium Level 2.0 mg/dL (1.6-2.6) Total Bilirubin 0.4 mg/dL (0.2-1.0) Aspartate Amino Transferase (AST) 42 U/L (13-40) Alanine Aminotransferase (ALT) 45 U/L (7-40) Alkaline Phosphatase 207 U/L (46-116) B-Type Natriuretic Peptide 26.70 pg/mL (0-100) Total Protein 7.1 g/dL (5.7-8.2) Albumin 4.0 g/dL (3.2-4.8) Thyroid Stimulating Hormone (TSH) 2.46 uIU/mL (0.55-4.78) Free Thyroxine (T4) Calculated 1.06 ng/dL (0.89-1.76) Blood Gas Specimen Type Arterial Blood Gas Sample Site Peripheral line Blood Gas Patient Temperature 37.0 Arterial Blood Date Drawn [id number] Arterial Blood pH 7.393 (7.350-7.450) Arterial Blood Partial Pressure CO2 29.4 mmHg (32.0-45.0) Arterial Blood Partial Pressure O2 68.1 mmHg (83.0-108.0) Arterial Blood HCO3 17.5 mmol/L (21.0-28.0) Arterial Blood Oxygen Saturation 93.4 % (94.0-98.0) Arterial Blood Base Excess -5.9 mmol/L (-2.0-3.0) Arterial Blood Oxyhemoglobin 91.5 % (94.0-98.0) Arterial Blood Carboxyhemoglobin 1.5 % (0.5-1.5) Arterial Blood Methemoglobin 0.5 % (0.0-1.5) Fuad Test Yes Blood Gas Total Hemoglobin 14.80 g/dL (12.0-16.0) Blood Gas Liter Flow 0.00 Blood Gas Modality Room air FiO2 % 21.0 Urine Color Dark yellow (Yellow) Urine Clarity Turbid (Clear) Urine pH 6.0 (5.0-9.0) Urine Specific [place] 1.024 (1.001-1.035) Urine Protein 2+ (Negative) Urine Ketones 2+ (Negative) Urine Blood 2+ /uL (Negative) Urine Nitrite Negative (Negative) Urine Bilirubin Negative (Negative) Urine Urobilinogen Normal mg/dL (Negative) Urine Leukocyte Esterase 2+ /uL (Negative) Urine RBC 5 /hpf (0 - 4) Urine WBC Clumps Present /hpf (None Seen) Urine Microscopic WBC 93 /HPF (0-5) Urine Squamous Epithelial Cells Few /hpf (<5) Urine Bacteria Many /hpf (None Seen) Urine Glucose 4+ mg/dL (Normal) Troponin I High Sensitivity < 3 ng/L (</=34) Test 12/26/24 21:15 Lactic Acid Level 1.2 mmol/L (0.4-2.0) Lipase 33 U/L (12-53) Other Laboratory Tests 01/01/25 06:43 Brief Hx & Hospital Course: Patient is a 60-year-old morbidly obese female with past medical history of [id number] type 2 diabetes mellitus, hypertension, hypothyroidism, who presented to the ED with generalized weakness, diffuse abdominal pain mostly on the left side, and uncontrolled hyperglycemia. Patient complained of burning sensation in the urine, chills, fevers, nausea, vomiting, dizziness, shortness of breath without cough, intermittent headaches, pain in both legs, since last 6 days. Patient appears alert x3, in moderate distress, she complains of diffuse abdominal pain more in the left hypochondriac and suprapubic region. She also reports feeling dizzy, nausea, intermittent headaches, pain in both legs, pain in her left arm due to a fall 2 months ago, shortness of breath, reports that she vomited 2 times since Saturday, has a history of constipation. Ultrasound shows Cholelithiasis with gallbladder wall thickening suggestive of acute cholecystitis, Probable hepatic steatosis with focal fatty sparing adjacent to the gallbladder fossa. chest xray shows Right hemidiaphragm elevated, Right basilar opacities representing atelectasis or pneumonia. Abdominal CT shows Left pyelonephritis with areas of developing phlegmon, Thickening and fat stranding of the right ureter could be seen with ureteritis. Surgery was consulted and recommended to get a HIDA scan and a CT of the abdomen and pelvis. If the HIDA is positive then we will proceed with a laparoscopic cholecystectomy. Patient past surgical history includes a and hysterectomy. Patient denies any alcohol, tobacco or drug use but has used marijuana in the past. Brief Hospital course: Patient came to the ED with diffuse abdominal pain most likely due to pyelonephritis, she had left pyelonephritis and acute complicated , sepsis likely due to left pyelonephritis. On CT scan it showed Left pyelonephritis with areas of developing phlegmon, Thickening and fat stranding of the right ureter could be seen with urethritis. Patient blood culture showed Staph haemolyticus. And a repeat blood culture were sent which shows negative blood culture. First IV Zosyn was changed to IV ceftriaxone and then changed to IV levofloxacin. For her possible acute cholecystitis, Surgery consulted and recommended to get a HIDA scan and a CT of the abdomen and pelvis. If the HIDA is positive then we will proceed with a laparoscopic cholecystectomy, But HIDA scan showed No scintigraphic evidence of acute cholecystitis, so surgery recommended no acute surgery for gallbladder and outpatient elective surgery once pyelonephritis resolved. For her uncontrolled diabetes mellitus Lantus 21 units, lispro 7 units was given and continuous Accu-Cheks and monitoring of labs were done. Her pseudohyponatremia was corrected. She had hypokalemia was given potassium and was corrected. She had transaminitis, with continuous monitoring of labs. Patient was on DVT prophylaxis with Lovenox and PPI prophylaxis with Protonix. Patient is stable for discharge and complained of no abdominal pain nausea, vomiting, diarrhea. She communicated understanding of her discharge plan and to follow-up with discharge Clinic in 1-2 weeks. General: Patient alert and oriented in person, place and time. Patient following commands. HEENT: Normocephalic, atraumatic, moist mucous membranes Respiratory/pulmonary: Clear lungs bilaterally, vesicular murmurs present in almost all lung soares, no associated crackles or wheezes. Cardiovascular: Normal heart sounds S1 and S2 with no associated murmurs Abdomen: Abdomen nondistended, there is no pain to palpation in any of the abdominal quadrants, no palpable masses. Obese Abdomen Extremities: There is no peripheral edema present at the lower extremities. Peripheral Pulses: 3+ Radial (R). 3+ Radial (L). 3+ Dorsalis pedis (R). 3+ Dorsalis pedis(L) Skin: No rashes or pruritus, there is no sacral edema present at this time. Neurological: Intact cranial nerves with no focal neurologic deficits Operations or Procedures ORDERING PHYSICIAN: MARI PENNY RESIDENT PROCEDURE(s): ABDC - ABDOMEN COMPLETE SONOGRAM REASON: EVALUATE FOR INTRA-ABDOMINAL PATHOLOGY ORDER NUMBER(s): [id number], ACCESSION NUMBER(s): [id number] EXAM: US ABDOMEN COMPLETE SONOGRAM HISTORY: EVALUATE FOR INTRA-ABDOMINAL PATHOLOGY COMPARISON: None TECHNIQUE: Complete abdominal ultrasound was performed. FINDINGS: There are shadowing gallstones with gallbladder wall thickening measuring up to 10 mm. The patient was not tender to transducer pressure over the gallbladder. No intrahepatic biliary ductal dilatation or liver mass. The liver measures 21 cm longitudinal. The liver is somewhat echogenic diffusely, with lower echogenicity adjacent to the gallbladder fossa. There is hepatopetal portal venous color Doppler flow. The common duct measures 5.3 mm in diameter. The partially visualized pancreas is unremarkable. The intrahepatic portion of the IVC is patent. No upper abdominal aortic ectasia. The right kidney measures 12.1 cm in length and is normal in appearance. The left kidney measures 12.7 cm in length and is normal in appearance. The spleen is normal in size. IMPRESSION: 1. Cholelithiasis with gallbladder wall thickening suggestive of acute cholecystitis. 2. Probable hepatic steatosis with focal fatty sparing adjacent to the gallbladder fossa. Exam: XY KUB ABDOMEN SINGLE VIEW Indication: Evaluate for intra-abdominal pathologies Comparison: None Technique: Single radiographic view of the abdomen. Findings: Nonobstructive bowel gas pattern noted. There is no definite evidence for pneumoperitoneum. No abnormal calcifications noted. Intrauterine device. Impression: 1. Nonobstructive bowel gas pattern noted. : US BILAT LOWER DVT HISTORY: B/L lower extremity edema with sob COMPARISON: None TECHNIQUE: Duplex Doppler evaluation of the deep venous system of the bilateral lower extremities from the common femoral veins to the posterior tibial veins including color Doppler and spectral/pulsed waveform analysis was performed. FINDINGS: The bilateral common femoral veins, superficial femoral veins, popliteal veins, and posterior tibial veins are patent with normal compressibility, augmentation, and cephalad color Doppler blood flow. No intraluminal filling defects are identified. IMPRESSION: No evidence of DVT in either lower extremity. ORDERING PHYSICIAN: MARTIN SMITH RESIDENT PROCEDURE(s): CXRP - CHEST PORTABLE REASON: hypoxia ORDER NUMBER(s): [id number], ACCESSION NUMBER(s): [id number] CHEST RADIOGRAPH Indication: hypoxia Technique: Single frontal view of the chest was obtained Comparison: None FINDINGS: Lines and Tubes: None Lungs: Right hemidiaphragm is elevated. Right basilar opacities. Pleura: No effusion. No pneumothorax. Cardiomediastinal contours: Unremarkable Bones: No acute osseous abnormality. IMPRESSION: 1. Right hemidiaphragm elevated. 2. Right basilar opacities representing atelectasis or pneumonia. ORDERING PHYSICIAN: SHANIKA TELLEZ MD PROCEDURE(s): ABPLIV - CT AB PEL WITH IV CON ONLY REASON: abd pain ORDER NUMBER(s): [id number], ACCESSION NUMBER(s): [id number] CT CT AB PEL WITH IV CON ONLY INDICATION: abd pain EXAM DATE: 12/27/2024 09:46 AM COMPARISON: None RADIATION DOSE: CTDIvol: 22.27 mGy, DLP: 1292.31 mGy*cm PROCEDURE: Helical CT images were obtained of the abdomen and pelvis with IV contrast Sagittal and coronal reconstructions are provided. ORAL CONTRAST: None. ADDITIONAL IMAGES / REFORMATS: None All CT scans at this medical facility are performed using dose modulation techniques as appropriate to a performed exam including the following: Automated exposure control was utilized; adjustment of the MA and/or KV according to patient size; and use of iterative reconstruction technique. FINDINGS: LUNG BASE: Bibasilar atelactasis is seen. LIVER: Normal. GALLBLADDER AND BILIARY TREE: No calcified gallstones. Normal caliber wall. No intra- or extrahepatic biliary ductal dilation. PANCREAS: Normal. SPLEEN: Normal. BOWEL: Normal. The appendix is normal. ADRENALS: Normal. KIDNEYS AND URETER: Left pyelonephritis with areas of developing phlegmon. Thickening and fat stranding of the right ureter could be seen with ureteritis. BLADDER: Normal. REPRODUCTIVE ORGANS: The uterus is absent. LYMPH NODES:No lymphadenopathy. PERITONEUM: No ascites or free air. No other fluid collection. VESSELS: Scattered atherosclerotic calcifications are noted. RETROPERITONEUM: Normal. ABDOMINAL WALL: Normal. BONES: Scattered osseous degenerative changes are noted. IMPRESSION: Left pyelonephritis with areas of developing phlegmon. Thickening and fat stranding of the right ureter could be seen with ureteritis. ORDERING PHYSICIAN: MARI PENNY PROCEDURE(s): CXR1 - CHEST XRAY 1 VIEW REASON: evaluate for acute cardiopulmonary process ORDER NUMBER(s): [id number], ACCESSION NUMBER(s): [id number] CHEST RADIOGRAPH Indication: evaluate for acute cardiopulmonary process Technique: Single frontal view of the chest was obtained COMPARISON: XY CHEST PORTABLE on DOS: 12/27/24 FINDINGS: Lines and Tubes: None Lungs: Mild diffuse increased prominence of the pulmonary vasculature. No evidence of focal consolidation. Pleura: No effusion. No pneumothorax. Cardiomediastinal contours: Unremarkable Bones: Unremarkable IMPRESSION: 1. No acute disease. Mild diffuse increased prominence of the pulmonary vasculature. ORDERING PHYSICIAN: SHANIKA TELLEZ MD PROCEDURE(s): GBNM - NM HIDA SCAN REASON: poss acute cholecystitis ORDER NUMBER(s): [id number], ACCESSION NUMBER(s): [id number] CLINICAL INFORMATION: Possible acute cholecystitis. TECHNIQUE: 6.5 mCi of Choletec were administered intravenously. Images of the upper abdomen were obtained at 1 minute intervals up to a total time of 45 minutes. COMPARISON: CT dated 12/27/2024. Ultrasound dated 12/27/2024. FINDINGS: There is prompt gallbladder visualization. There is prompt excretion of activity from the biliary ductal system into the small bowel. There is no evidence of acute cholecystitis. IMPRESSION: No scintigraphic evidence of acute cholecystitis. Correlate with clinical findings. Condition at Discharge: Stable Final Diagnosis/Problems List # Intractable Abdominal pain likely due to Pyelonephritis # Left pyelonephritis # Acute complicated UTI # acute cholecystitis ruled out # SIRS likely due to pyelonephritis # Uncontrolled type 2 diabetes mellitus with hyperglycemia , HBA1C 12.3 # Pseudohyponatremia likely secondary to hyperglycemia # Hypokalemia # Transaminitis # Mild Anion Gap Metabolic Acidosis- Resolved Discharge Disposition: Home Discharge Instruct/Medications Scheduled Insulin Glargine (Lantus Solostar), 21 UNIT SC QPM Insulin Lispro (Humalog Kwikpen), 7 UNIT SC TID Levofloxacin Hemihydrate (Levofloxacin), 1 TAB PO DAILY Metformin Hydrochloride (Metformin Hcl), 1 TAB PO DAILY, (Reported) Pantoprazole Sodium Sesquihydr (Protonix), 40 MG PO DAILY Durable Medical Equipment Blood Glucose Monitoring Suppl (D-Care Glucometer Kit/Glu W/Device), KIT XX TID, (DME) Insulin Syringe/Needle U-100 (Advocate Insulin Syringe/), MG XX TID, (DME) Lancets (Freestyle Lancets), AC XX TID, (DME) Discharge Statement: "Patient was advised to return to the ER or call 911 if any headaches, dizziness, shortness of breath, chest pain, abdominal pain, bleeding, fevers, or worsening of medical condition. Patient was counseled about treatment plan, medications, possible side effects, patientverbalized understanding. All questions were answered to the best of my ability. This discharge took greater then 30 minutes in planning, reviewing documentation, counseling the patient, and discussing with other team members." ASSESSMENT ASSESSMENT Assessment Date of Service: Jan 01, 2025 Billing Provider: CONCEPCION MATHEWS MD Common Visit Codes: 57212-ZWR/OBS DISCH DAY >30min DOUG CONTRERAS Jan 01, 2025 10:23 CONCEPCION MATHEWS MD Jan 07, 2025 13:19
[2025-01-01 11:14] VITALS: TEMP 36.9
[2025-01-01] MEDS ORDERED: INSUINJ37 SC (11:18)
[2025-01-01] MEDS ORDERED: INSU-567 XX (11:18)
[2025-01-01] MEDS ORDERED: PANT40TA2 PO (11:18)
[2025-01-01] MEDS ORDERED: LEVO750T40 PO (11:18)
[2025-01-01] MEDS ORDERED: INSU100I4 SC (11:18)
[2025-01-01] MEDS ORDERED: BLOO1KIT60 XX (11:30)
[2025-01-01] MEDS ORDERED: LANC-347 XX (11:30)
[2025-01-01 13:00] VITALS: BP 97/59; PULSE 67; RESP 18; TEMP 97.9; O2SAT 95
== END 2025-01-01 15:00 | disposition home or self-care (01) | DRG 463 ==
LOC: EDBD 20:50 → ER 20:50 → OVERFLOW 12-27 03:00 → EAST 12-27 06:50
PROVIDERS: ADMIT Student in an Organized Health Care Education/Training Program; ATTEND Physician Assistant
DX: N12 Tubulo-interstitial nephritis, not specified as acute or chronic (principal); R65.10 Systemic inflammatory response syndrome (SIRS) of non-infectious origin without acute organ dysfunction; E87.20 Acidosis, unspecified; K80.10 Calculus of gallbladder with chronic cholecystitis without obstruction; Z68.43 Body mass index [BMI] 50.0-59.9, adult; E11.65 Type 2 diabetes mellitus with hyperglycemia; L02.818 Cutaneous abscess of other sites; I10 Essential (primary) hypertension; Z20.822 Contact with and (suspected) exposure to COVID-19; E87.6 Hypokalemia; R74.01 Elevation of levels of liver transaminase levels; Z90.710 Acquired absence of both cervix and uterus; E66.01 Morbid (severe) obesity due to excess calories
CPT/HCPCS: 36415; 36600; 71045; 74018; 74177; 76700; 78226; 80048; 80053; 80307; 81001; 82805; 82962; 83036; 83605; 83690; 83735; 83880; 83930; 84100; 84439; 84443; 84484; 85025; 85379; 85610; 85730; 87040; 87076; 87077; 87086; 87426; 87804; 93970; 96361; 96374; 96375; G0378; J1815; J1885; J1956; J2405; J2470; J2543